=== PATIENT | male | born 1945 | race Caucasian/White ===

== ENCOUNTER 2017-11-14 13:44 | Inpatient (IN) | payer MEDICARE, OTHER ==
--- NOTE | 2017-11-14 15:37 | PCM.HP ---
H&P History of Present Illness - General Date of Service: 11/14/17 Admit Problem/Dx: Admission Diagnosis/Problem Admission Diagnosis/Problem Pneumonia COPD CHF ARF Source of Information: Patient, Longterm Records History Limitations: Reports: No Limitations - History of Present Illness Onset of Symptoms: Reports: Gradual Duration of Symptoms: Reports: Day(s): (getting worse last couple days) Location: Reports: Chest Improves with: Reports: Medication (neb treatments), Rest Worsens with: Reports: Movement Associated Symptoms: Reports: Cough, cough w sputum, Malaise, Shortness of Breath, Weakness - Related Data Allergies/Adverse Reactions: Allergies Allergy/AdvReac Type Severity Reaction Status Date / Time acyclovir Allergy Cannot Verified 11/14/17 15:36 Remember Past Medical History HEENT History: Reports: Cataract Other HEENT History: Dysphagia Cardiovascular History: Reports: Heart Failure, Hypertension Respiratory History: Reports: COPD, Sleep Apnea Gastrointestinal History: Reports: Chronic Constipation, GERD Genitourinary History: Reports: BPH, Renal Disease (chronic stage 3) Other Genitourinary History: Overactive Bladder Musculoskeletal History: Reports: Osteoarthritis Neurological History: Reports: Parkinson's Psychiatric History: Reports: Bipolar, Depression, Psychosis, Schizophrenia ( schizoaffective disorder) Endocrine/Metabolic History: Reports: Obesity/BMI 30+ Hematologic History: Reports: Anemia Social & Family History - Tobacco Use Tobacco Use Within Last Twelve Months: No - Living Situation & Occupation Living situation: Reports: Extended Care Facility ([facility]) H&P Review of Systems - Review of Systems: Review Of Systems: ROS reveals no pertinent complaints other than HPI. Exam - Exam Exam: See Below - Exam Quality Assessment: Supplemental Oxygen (continuous at 2-4 L/min per NC) General: Alert, Oriented, Mild Distress HEENT: Hearing Intact, Mucosa Moist & [place] Neck: Supple, Trachea Midline Lungs: Decreased Breath Sounds, Crackles, Rhonchi Cardiovascular: Regular Rate, Regular Rhythm GI/Abdominal Exam: Normal Bowel Sounds, Soft, Non-Tender (Male) Exam: Deferred Rectal (Males) Exam: Deferred Back Exam: Normal Inspection Extremities: Pedal Edema (chronic) Skin: Warm, Dry, Intact Neuro Extensive - Mental Status: Alert, Oriented x3 Psychiatric: Alert, Other (quieter than usual jovial self) *Q Meaningful Use (ADM) - VTE *Q VTE Criteria *Q: - Stroke *Q Stroke Criteria *Q: - AMI *Q AMI Criteria *Q: - Problem List (1) Pneumonia SNOMED Code(s): 407154458 ICD Code: J18.9 - PNEUMONIA, UNSPECIFIED ORGANISM Status: Acute Priority : High Current Visit: Yes Qualifiers: Pneumonia type: due to unspecified organism Laterality: left Lung location: lower lobe of lung Qualified Code(s): J18.1 - Lobar pneumonia, unspecified organism (2) COPD (chronic obstructive pulmonary disease) SNOMED Code(s): 51372152 ICD Code: J44.9 - CHRONIC OBSTRUCTIVE PULMONARY DISEASE, UNSPECIFIED Status : Acute Priority: High Current Visit: Yes Qualifiers: COPD type: COPD with acute exacerbation Qualified Code(s): J44.1 - Chronic obstructive pulmonary disease with (acute) exacerbation (3) CHF (congestive heart failure) SNOMED Code(s): 09024245 ICD Code: I50.9 - HEART FAILURE, UNSPECIFIED Status: Acute Priority: High Current Visit: Yes Qualifiers: Heart failure type: unspecified Heart failure chronicity: acute on chronic Qualified Code(s): I50.9 - Heart failure, unspecified (4) Renal failure (ARF), acute on chronic SNOMED Code(s): 138138323 ICD Code: N17.9 - ACUTE KIDNEY FAILURE, UNSPECIFIED; N18.9 - CHRONIC KIDNEY DISEASE, UNSPECIFIED Status: Acute Priority: High Current Visit: Yes Qualifiers: Acute renal failure type: unspecified Chronic kidney disease stage: stage 3 (moderate) Qualified Code(s): N17.9 - Acute kidney failure, unspecified; N18.3 - Chronic kidney disease, stage 3 (moderate); N18.3 - Chronic kidney disease, stage 3 (moderate) Problem List Initiated/Reviewed/Updated: Yes Orders Last 24hrs: Active Orders 24 hr Category Date Time Status Patient Status [ADT] Routine ADT 11/14/17 15:03 Active Antiembolic Devices [RC] PER UNIT ROUTINE Care 11/14/17 15:06 Active Height and Weight [RC] DAILY Care 11/14/17 15:03 Active Intake and Output [RC] QSHIFT Care 11/14/17 15:04 Active Oxygen Therapy Adult [Oxygen Therapy] [RC] CONTINUOUS Care 11/14/17 15:08 Active Oxygen Therapy [RC] PRN Care 11/14/17 15:03 Inactive Up With Assistance [RC] ASDIRECTED Care 11/14/17 15:03 Active VTE/DVT Education [RC] PER UNIT ROUTINE Care 11/14/17 15:03 Active Vital Signs [RC] Q4H Care 11/14/17 15:03 Active Care Management Consult [Consult to Case Management] [ Cons 11/14/17 15:12 Active CONS] Routine Pharmacy Consult [Consult to Pharmacy] [CONS] Routine Cons 11/14/17 15:11 Active Regular Diet [DIET] Diet 11/14/17 Dinner Active Chest 2V [CR] Routine Exams 11/14/17 14:00 Taken C-REACTIVE PROTEIN [CHEM] AM Lab 11/15/17 05:11 Ordered C-REACTIVE PROTEIN [CHEM] AM Lab 11/16/17 05:11 Ordered C-REACTIVE PROTEIN [CHEM] AM Lab 11/17/17 05:11 Ordered CBC WITH AUTO DIFF [HEME] AM Lab 11/15/17 05:11 Ordered CBC WITH AUTO DIFF [HEME] AM Lab 11/16/17 05:11 Ordered CBC WITH AUTO DIFF [HEME] AM Lab 11/17/17 05:11 Ordered COMPREHENSIVE METABOLIC PN,CMP [CHEM] AM Lab 11/15/17 05:11 Ordered COMPREHENSIVE METABOLIC PN,CMP [CHEM] AM Lab 11/16/17 05:11 Ordered COMPREHENSIVE METABOLIC PN,CMP [CHEM] AM Lab 11/17/17 05:11 Ordered CULTURE BLOOD [BC] Stat Lab 11/14/17 15:07 Ordered CULTURE BLOOD [BC] Stat Lab 11/14/17 15:07 Ordered PRO B-TYPE NATRIUR PEPT,BNPPRO [CHEM] DAILY Lab 11/15/17 05:11 Ordered PRO B-TYPE NATRIUR PEPT,BNPPRO [CHEM] DAILY Lab 11/16/17 05:11 Ordered PRO B-TYPE NATRIUR PEPT,BNPPRO [CHEM] DAILY Lab 11/17/17 05:11 Ordered Piperacillin/Tazobactam [Zosyn] 2.25 gm Med 11/14/17 15:15 Ordered Sodium Chloride 0.9% [Normal Saline] 100 ml IV Q6H Sodium Chloride 0.9% [Saline Flush] Med 11/14/17 15:07 Ordered 10 ml FLUSH ASDIRECTED PRN metroNIDAZOLE/Normal Saline [Flagyl 500 MG in NS 100 ML Med 11/14/17 15:15 Ordered ] 500 mg Premix Bag 1 bag IV Q8H Antiembolic Hose [OM.PC] Per Unit Routine Oth 11/14/17 15:06 Ordered Blood Culture x2 Reflex Set [OM.PC] Stat Oth 11/14/17 15:07 Ordered Saline Lock Insert [OM.PC] Routine Oth 11/14/17 15:07 Ordered Resuscitation Status Routine Resus Stat 11/14/17 15:03 Ordered Medication Orders Metronidazole 500 mg/ Premix 100 mls @ 100 mls/hr IV Q8H NASIR Piperacillin Sod/Tazobactam (Sod 2.25 gm/ Sodium Chloride) 100 mls @ 200 mls/ hr IV Q6H NASIR Sodium Chloride (Saline Flush) 10 ml FLUSH ASDIRECTED PRN PRN Reason: Keep Vein Open Assessment/Plan Comment:: 11-14-17 Elena Goddard PA-C Admitting this gentleman from the Skilled Unit of the [facility], after evaluation at the clinic. He appears in at least mild distress, and workup finds pneumonia, COPD exacerbation and decompensation of CHF. His renal status has worsened and will need to be considered when treating these other comorbidities. [facility] had no bed available, but our cattle care worker can check with her on status of beds tomorrow. Blood cultures ordered on admit. Starting IV Flagyl and Zosyn. Dr. Moran consulted at the time of admit.
[2017-11-14] MEDS ORDERED: Albuterol/Ipratropium 3.0-0.5 MG/3 ML Neb Soln NEB PRN ×2 (16:31→17:22)
[2017-11-14] MEDS: Piperacillin/Tazobactam 2.25 GM in Sodium Chloride 0.9% 100 ML IV SCH ×2 (16:45→21:22)
[2017-11-14] MEDS: Sodium Chloride 0.9% 10 ML Syringe FLUSH PRN ×4 (16:46→21:23)
[2017-11-14] MEDS: metroNIDAZOLE/Normal Saline 500 MG in Premix Bag 1 BAG IV SCH (16:46)
[2017-11-14] MEDS ORDERED: Polyvinyl Alcohol 1.4% Ophth Soln 15 ML Bottle EYEBOTH PRN (17:22)
[2017-11-14] MEDS ORDERED: Bisacodyl 10 MG Supp RECTAL PRN (17:22)
[2017-11-14] MEDS ORDERED: Loperamide 2 MG Tab PO PRN (17:22)
[2017-11-14] MEDS ORDERED: Docusate Sodium 100 MG Cap PO PRN (17:22)
[2017-11-14] MEDS ORDERED: Bisacodyl 5 MG Tab PO PRN (17:22)
[2017-11-14] MEDS ORDERED: Acetaminophen 325 MG Tab PO PRN (17:22)
[2017-11-14] MEDS ORDERED: Magnesium Hydroxide 400 MG/5 ML Susp 30 ML Cup PO PRN (17:22)
[2017-11-14] MEDS ORDERED: Nitroglycerin 0.4 MG Tab.SL SL PRN (17:22)
[2017-11-14] MEDS ORDERED: guaiFENesin/Dextromethorphan 100-10 MG/5 ML Soln 10 ML Cup PO PRN (17:22)
[2017-11-14] MEDS: CLOZAPINE 100 MG PO SCH (19:25)
[2017-11-14] MEDS: guanFACINE 1 MG Tab PO SCH (19:26)
[2017-11-14] MEDS: Tamsulosin 0.4 MG Cap.ER PO SCH (19:26)
[2017-11-14] MEDS: Primidone 50 MG Tab PO SCH (19:27)
[2017-11-14] MEDS: Omeprazole 20 MG Cap.CR PO SCH (19:27)
[2017-11-14] MEDS: Acetaminophen 650 MG Tab.ER PO SCH (19:28)
[2017-11-14] MEDS: Albuterol/Ipratropium 3.0-0.5 MG/3 ML Neb Soln NEB SCH (19:28)
[2017-11-14] MEDS: methylPREDNISolone Sodium Succinate 40 MG/1 ML SDV IVPUSH SCH (19:29)
[2017-11-14] MEDS ORDERED: Albuterol/Ipratropium 3.0-0.5 MG/3 ML Neb Soln NEB SCH (20:00)
[2017-11-15] MEDS: metroNIDAZOLE/Normal Saline 500 MG in Premix Bag 1 BAG IV SCH ×3 (00:38→16:31)
[2017-11-15] MEDS: Sodium Chloride 0.9% 10 ML Syringe FLUSH PRN ×9 (00:39→22:13)
[2017-11-15] MEDS: Piperacillin/Tazobactam 2.25 GM in Sodium Chloride 0.9% 100 ML IV SCH ×4 (03:44→22:13)
[2017-11-15] MEDS: Albuterol/Ipratropium 3.0-0.5 MG/3 ML Neb Soln NEB SCH ×4 (08:19→19:57)
[2017-11-15] MEDS: methylPREDNISolone Sodium Succinate 40 MG/1 ML SDV IVPUSH SCH ×2 (08:19→19:57)
[2017-11-15] MEDS: Furosemide 20 MG/2 ML VIAL IVPUSH SCH (08:20)
[2017-11-15] MEDS: Lactulose Soln 10 GM/15 ML 30 ML UD Cup PO SCH (11:50)
[2017-11-15] MEDS: lamoTRIgine 100 MG Tab PO SCH (11:51)
[2017-11-15] MEDS: Cyanocobalamin (Vitamin B12) 250 MCG Tab PO SCH (11:52)
[2017-11-15] MEDS: Oxybutynin 5 MG Tab.ER PO SCH (11:53)
[2017-11-15] MEDS: Acetaminophen 650 MG Tab.ER PO SCH ×2 (11:53→19:58)
[2017-11-15] MEDS: Omeprazole 20 MG Cap.CR PO SCH ×2 (11:56→19:57)
[2017-11-15] MEDS: Sertraline 50 MG Tab PO SCH (11:57)
[2017-11-15] MEDS: Propranolol 80 MG Cap.ER PO SCH (11:57)
[2017-11-15] MEDS: Finasteride 5 MG Tab PO SCH (11:57)
[2017-11-15] MEDS: CLOZAPINE 100 MG PO SCH ×2 (15:20→19:59)
[2017-11-15] MEDS: Primidone 50 MG Tab PO SCH (19:57)
[2017-11-15] MEDS: Tamsulosin 0.4 MG Cap.ER PO SCH (19:57)
[2017-11-15] MEDS: guanFACINE 1 MG Tab PO SCH (19:58)
--- NOTE | 2017-11-15 21:52 | PCM.PN ---
- General Info Date of Service: 11/15/17 Admission Dx/Problem (Free Text): Admission Diagnosis/Problem Admission Diagnosis/Problem Pneumonia COPD CHF ARF Functional Status: Reports: Pain Controlled - Review of Systems General: Reports: Weakness HEENT: Reports: No Symptoms Pulmonary: Reports: Shortness of Breath, Cough Cardiovascular: Reports: No Symptoms Gastrointestinal: Reports: No Symptoms Genitourinary: Reports: Incontinence Musculoskeletal: Reports: No Symptoms Skin: Reports: Bruising, Other (difficult IV access) Neurological: Reports: Pre-Existing Deficit Psychiatric: Reports: No Symptoms - Patient Data Vitals - Most Recent: Last Vital Signs Temp 98.2 F 11/15/17 20:00 Pulse 70 11/15/17 20:00 Resp 16 11/15/17 20:00 BP 130/66 11/15/17 20:00 Pulse Ox 93 L 11/15/17 20:00 Weight - Most Recent: 244 lb I&O - Last 24 Hours: Intake & Output 11/15/17 11/15/17 11/15/17 06:59 14:59 22:59 Intake Total 837 292 9490 Output Total 500 Balance 513 39 2833 Lab Results Last 24 Hours: Laboratory Results - last 24 hr 11/15/17 11/15/17 Range/Units 07:02 07:02 WBC 6.9 (4.0-10.2) K/uL RBC 2.86 L (4.33-5.41) M/uL Hgb 9.7 L (13.1-16.8) g/dL Hct 29.7 L (39.0-49.0) % MCV 103.8 H (84.0-98.0) fL MCH 33.9 H (28.2-33.3) pg MCHC 32.7 (31.7-36.0) g/dL RDW 14.0 (11.2-14.1) % Plt Count 127 L (150-350) K/uL Neut % (Auto) 88.3 H (45.0-80.0) % Lymph % (Auto) 8.4 L (10.0-50.0) % Gibson % (Auto) 2.9 (2.0-14.0) % Eos % (Auto) 0.1 (0.0-5.0) % Baso % (Auto) 0.3 (0.0-2.0) % Neut # (Auto) 6.10 (1.40-7.00) K/uL Lymph # (Auto) 0.58 (0.50-3.50) K/uL Gibson # (Auto) 0.20 (0.00-1.00) K/uL Eos # (Auto) 0.01 (0.00-0.50) K/uL Baso # (Auto) 0.02 (0.00-0.20) K/uL Sodium 142 (136-145) mmol/L Potassium 4.9 (3.5-5.1) mmol/L Chloride 106 (98-107) mmol/L Carbon Dioxide 28.1 (21.0-32.0) mmol/L BUN 41 H (7-18) mg/dL Creatinine 2.22 H (0.51-1.17) mg/dL Est Cr Clr Drug Dosing 30.60 mL/min Estimated GFR (MDRD) 29 mL/min Glucose 253 H* (74-106) mg/dL Calcium 9.7 (8.5-10.1) mg/dL Total Bilirubin 0.3 (0.2-1.0) mg/dL AST 12 L (15-37) U/L ALT 19 (12-78) U/L Alkaline Phosphatase 83 (46-116) IU/L C-Reactive Protein 11.3 H (<=0.9) mg/dL NT-Pro-B Natriuret Pep 1194 H (0-125) pg/mL Total Protein 6.2 L (6.4-8.2) g/dL Albumin 2.9 L (3.4-5.0) g/dL Behzad Results Last 24 Hours: Microbiology 11/14/17 15:29 Aerobic Blood Culture - Preliminary Blood - Venous - Lab Draw Anaerobic Blood Culture - Preliminary NO GROWTH AFTER 1 DAY 11/14/17 15:26 Aerobic Blood Culture - Preliminary Blood - Venous NO GROWTH AFTER 1 DAY Anaerobic Blood Culture - Preliminary NO GROWTH AFTER 1 DAY Med Orders - Current: Current Medications Acetaminophen (Tylenol Arthritis Pain) 650 mg PO BID@1200,1900 NASIR Last Admin: 11/15/17 19:58 Dose: 650 mg Acetaminophen (Tylenol) 650 mg PO Q6H PRN PRN Reason: Pain Albuterol/Ipratropium (Duoneb 3.0-0.5 Mg/3 Ml) 3 ml NEB Q4H PRN PRN Reason: Shortness of Breath Albuterol/Ipratropium (Duoneb 3.0-0.5 Mg/3 Ml) 3 ml NEB QIDRT [facility] Last Admin: 11/15/17 19:57 Dose: 3 ml Artificial Tears (Liquitears 1.4% Ophth Soln) 0 ml EYEBOTH Q4H PRN PRN Reason: Dry Eyes Bisacodyl (Dulcolax) 10 mg RECTAL DAILY PRN PRN Reason: Constipation Bisacodyl (Dulcolax) 5 mg PO DAILY PRN PRN Reason: Constipation Cyanocobalamin (Vitamin B12) 250 mcg PO DAILY@1200 [facility] [place] Last Admin: 11/15/17 11:52 Dose: 250 mcg Docusate Sodium (Colace) 100 mg PO DAILY PRN PRN Reason: Constipation Finasteride (Proscar) 5 mg PO DAILY@1200 [facility] [place] Last Admin: 11/15/17 11:57 Dose: 5 mg Furosemide (Lasix) 20 mg IVPUSH DAILY [facility] [place] Last Admin: 11/15/17 08:20 Dose: 20 mg Guaifenesin/Dextromethorphan (Robitussin Dm) 10 ml PO Q4H PRN PRN Reason: Cough Guanfacine HCl (Guanfacine) 1 mg PO DAILY@1900 [facility] [place] Last Admin: 11/15/17 19:58 Dose: 1 mg Metronidazole 500 mg/ Premix 100 mls @ 100 mls/hr IV Q8H [facility] [place] Last Admin: 11/15/17 16:31 Dose: 100 mls/hr Piperacillin Sod/Tazobactam (Sod 2.25 gm/ Sodium Chloride) 100 mls @ 200 mls/ hr IV Q6H [facility] [place] Last Admin: 11/15/17 15:21 Dose: 200 mls/hr Lactulose (Cephulac) 10 gm PO DAILY@1200 [facility] [place] Last Admin: 11/15/17 11:50 Dose: 10 gm Lamotrigine (Lamotrigine) 150 mg PO DAILY@1200 [facility] [place] Last Admin: 11/15/17 11:51 Dose: 150 mg Loperamide HCl (Imodium Ad) 2 mg PO ASDIRECTED PRN PRN Reason: LOOSE STOOLS Magnesium Hydroxide (Milk Of Magnesia) 30 ml PO DAILY PRN PRN Reason: Constipation Methylprednisolone Sodium Succinate (Solu-Medrol) 20 mg IVPUSH Q12H [facility] [place] Last Admin: 11/15/17 19:57 Dose: 20 mg Nitroglycerin (Nitrostat) 0.4 mg SL ASDIRECTED PRN PRN Reason: Chest Pain Clozapine 100 Mg (Own Med) 0 mg PO BID@1200,1900 [facility] [place] Last Admin: 11/15/17 19:59 Dose: 150 mg Omeprazole (Omeprazole) 20 mg PO BID@1200,1900 [facility] [place] Last Admin: 11/15/17 19:57 Dose: 20 mg Oxybutynin Chloride (Oxybutynin Er) 10 mg PO DAILY@1200 [facility] [place] Last Admin: 11/15/17 11:53 Dose: 10 mg Primidone (Mysoline) 50 mg PO DAILY@1900 [facility] [place] Last Admin: 11/15/17 19:57 Dose: 50 mg Propranolol HCl (Inderal La) 80 mg PO DAILY@1200 [facility] [place] Last Admin: 11/15/17 11:57 Dose: 80 mg Senna/Docusate Sodium (Senna Plus) 2 tab PO BID@1200,1900 [facility] [place] Last Admin: 11/15/17 19:57 Dose: 2 tab Sertraline HCl (Zoloft) 200 mg PO DAILY@1200 [facility] [place] Last Admin: 11/15/17 11:57 Dose: 200 mg Sodium Chloride (Saline Flush) 10 ml FLUSH ASDIRECTED PRN PRN Reason: Keep Vein Open Last Admin: 11/15/17 19:59 Dose: 10 ml Tamsulosin HCl (Flomax) 0.4 mg PO DAILY@1900 [facility] [place] Last Admin: 11/15/17 19:57 Dose: 0.4 mg Discontinued Medications Albuterol/Ipratropium (Duoneb 3.0-0.5 Mg/3 Ml) 3 ml NEB Q4HRRT PRN PRN Reason: Dyspnea Last Admin: 11/14/17 16:45 Dose: 3 ml Albuterol/Ipratropium (Duoneb 3.0-0.5 Mg/3 Ml) 3 ml NEB QIDRT [facility] [place] Piperacillin Sod/Tazobactam Sod (Zosyn) Confirm Administered Dose 2.25 gm .ROUTE .STK-MED ONE Stop: 11/14/17 16:04 Last Admin: 11/14/17 16:43 Dose: Not Given - Exam Quality Assessment: Supplemental Oxygen, Skin Breakdown (great toe) HEENT: Mucous Membr. Moist/[place] Neck: Trachea Midline, No JVD Lungs: Normal Respiratory Effort, Decreased Breath Sounds, Rhonchi Cardiovascular: Regular Rate, Regular Rhythm GI/Abdominal Exam: Soft, Non-Tender, No Distention (Male) Exam: Deferred Back Exam: Normal Inspection Extremities: Pedal Edema, Slow Capillary Refill Skin: Warm, Dry, Ecchymosis Wound/Incisions: Other (great toe) Neurological: No New Focal Deficit Psy/Mental Status: Alert, Normal Affect, Normal Mood - Problem List & Annotations (1) CHF (congestive heart failure) SNOMED Code(s): 02260821 Code(s): I50.9 - HEART FAILURE, UNSPECIFIED Status: Acute Priority: High Current Visit: Yes Qualifiers: Heart failure type: unspecified Heart failure chronicity: acute on chronic Qualified Code(s): I50.9 - Heart failure, unspecified (2) COPD (chronic obstructive pulmonary disease) SNOMED Code(s): 65166385 Code(s): J44.9 - CHRONIC OBSTRUCTIVE PULMONARY DISEASE, UNSPECIFIED Status : Acute Priority: High Current Visit: Yes Qualifiers: COPD type: COPD with acute exacerbation Qualified Code(s): J44.1 - Chronic obstructive pulmonary disease with (acute) exacerbation (3) Pneumonia SNOMED Code(s): 004319729 Code(s): J18.9 - PNEUMONIA, UNSPECIFIED ORGANISM Status: Acute Priority: High Current Visit: Yes Qualifiers: Pneumonia type: due to unspecified organism Laterality: left Lung location: lower lobe of lung Qualified Code(s): J18.1 - Lobar pneumonia, unspecified organism (4) Renal failure (ARF), acute on chronic SNOMED Code(s): 813033644 Code(s): N17.9 - ACUTE KIDNEY FAILURE, UNSPECIFIED; N18.9 - CHRONIC KIDNEY DISEASE, UNSPECIFIED Status: Acute Priority: High Current Visit: Yes Qualifiers: Acute renal failure type: unspecified Chronic kidney disease stage: stage 3 (moderate) Qualified Code(s): N17.9 - Acute kidney failure, unspecified; N18.3 - Chronic kidney disease, stage 3 (moderate); N18.3 - Chronic kidney disease, stage 3 (moderate) - Problem List Review Problem List Initiated/Reviewed/Updated: Yes - My Orders Last 24 Hours: My Active Orders 11/16/17 05:11 Consult to PICC Team [CONS] Routine BLOOD GAS VENOUS [BG] Routine PHOSPHORUS [CHEM] Routine URIC ACID [CHEM] Routine 11/16/17 08:00 Consult to Speech Language Pathology [MD PEDIATRIC ALLERGIST Evaluation and Treatment] [CONS] Routine 11/16/17 10:00 Swallowing Function w Video [CR] Routine - Plan Plan:: 11-14-17 Elena Goddard PA-C Admitting this gentleman from the Skilled Unit of the [facility], after evaluation at the clinic. He appears in at least mild distress, and workup finds pneumonia, COPD exacerbation and decompensation of CHF. His renal status has worsened and will need to be considered when treating these other comorbidities. [facility] had no bed available, but our career coordinator can check with her on status of beds tomorrow. Blood cultures ordered on admit. Starting IV Flagyl and Zosyn. Dr. Moran consulted at the time of admit. 11/15/17 Dean Dai MD A little bit better today. Blood cultures preliminary +. Difficult IV access. Will order PICC. Continue IV antibiotics. Kidney status no improvement.
[2017-11-16] MEDS: metroNIDAZOLE/Normal Saline 500 MG in Premix Bag 1 BAG IV SCH ×3 (00:03→17:37)
[2017-11-16] MEDS: Sodium Chloride 0.9% 10 ML Syringe FLUSH PRN ×9 (00:07→21:32)
[2017-11-16] MEDS: Piperacillin/Tazobactam 2.25 GM in Sodium Chloride 0.9% 100 ML IV SCH ×4 (03:19→21:31)
[2017-11-16] MEDS: Albuterol/Ipratropium 3.0-0.5 MG/3 ML Neb Soln NEB SCH ×4 (07:22→19:39)
[2017-11-16 08:12] LABS: BASE EXCESS VENOUS 5 mmol/L ((-2)-3); BICARBONATE,VENOUS 30 mmol/L (23-28); O2 SATURATION VENOUS 100 %; PCO2 VENOUS 47 mmHG (41-51); PH,VENOUS 7.41 (7.31-7.41); PO2 VENOUS 183 mmHG
[2017-11-16 08:13] LABS: O2 DELIVERY DEVICE NASAL CANNULA
[2017-11-16] MEDS: Furosemide 20 MG/2 ML VIAL IVPUSH SCH (08:35)
[2017-11-16] MEDS: methylPREDNISolone Sodium Succinate 40 MG/1 ML SDV IVPUSH SCH ×2 (08:35→19:39)
[2017-11-16] MEDS: Lactulose Soln 10 GM/15 ML 30 ML UD Cup PO SCH (12:39)
[2017-11-16] MEDS: CLOZAPINE 100 MG PO SCH ×2 (12:40→19:38)
[2017-11-16] MEDS: Propranolol 80 MG Cap.ER PO SCH (12:41)
[2017-11-16] MEDS: Oxybutynin 5 MG Tab.ER PO SCH (12:41)
[2017-11-16] MEDS: Acetaminophen 650 MG Tab.ER PO SCH ×2 (12:41→19:39)
[2017-11-16] MEDS: Finasteride 5 MG Tab PO SCH (12:41)
[2017-11-16] MEDS: lamoTRIgine 100 MG Tab PO SCH (12:42)
[2017-11-16] MEDS: Cyanocobalamin (Vitamin B12) 250 MCG Tab PO SCH (12:42)
[2017-11-16] MEDS: Sertraline 50 MG Tab PO SCH (12:42)
[2017-11-16] MEDS: Omeprazole 20 MG Cap.CR PO SCH ×2 (12:42→19:38)
--- NOTE | 2017-11-16 15:43 | PCM.PN ---
- General Info Date of Service: 11/16/17 Admission Dx/Problem (Free Text): Admission Diagnosis/Problem Admission Diagnosis/Problem Pneumonia COPD CHF ARF Functional Status: Reports: Pain Controlled - Review of Systems General: Reports: Weakness HEENT: Reports: No Symptoms Pulmonary: Reports: Shortness of Breath, Cough Cardiovascular: Reports: No Symptoms Gastrointestinal: Reports: No Symptoms Genitourinary: Reports: No Symptoms Musculoskeletal: Reports: No Symptoms Skin: Reports: No Symptoms Neurological: Reports: Pre-Existing Deficit, Weakness Psychiatric: Reports: No Symptoms, Mood Lability (History) - Patient Data Vitals - Most Recent: Last Vital Signs Temp 97.9 F 11/16/17 12:00 Pulse 65 11/16/17 12:00 Resp 18 11/16/17 12:00 BP 167/78 H 11/16/17 12:00 Pulse Ox 94 L 11/16/17 12:00 Weight - Most Recent: 244 lb I&O - Last 24 Hours: Intake & Output 11/16/17 11/16/17 11/16/17 06:59 14:59 22:59 Intake Total 200 840 Output Total 50 400 Balance 150 440 Lab Results Last 24 Hours: Laboratory Results - last 24 hr 11/16/17 11/16/17 11/16/17 Range/Units 06:50 06:50 06:50 WBC 9.2 (4.0-10.2) K/uL RBC 2.97 L (4.33-5.41) M/uL Hgb 10.0 L (13.1-16.8) g/dL Hct 31.0 L (39.0-49.0) % MCV 104.4 H (84.0-98.0) fL MCH 33.7 H (28.2-33.3) pg MCHC 32.3 (31.7-36.0) g/dL RDW 13.9 (11.2-14.1) % Plt Count 153 (150-350) K/uL Neut % (Auto) 87.0 H (45.0-80.0) % Lymph % (Auto) 8.3 L (10.0-50.0) % [place] % (Auto) 4.4 (2.0-14.0) % Eos % (Auto) 0.1 (0.0-5.0) % Baso % (Auto) 0.2 (0.0-2.0) % Neut # (Auto) 7.99 H (1.40-7.00) K/uL Lymph # (Auto) 0.76 (0.50-3.50) K/uL [place] # (Auto) 0.40 (0.00-1.00) K/uL Eos # (Auto) 0.01 (0.00-0.50) K/uL Baso # (Auto) 0.02 (0.00-0.20) K/uL VBG pH 7.41 (7.31-7.41) VBG pCO2 47 (41-51) mmHG VBG pO2 183 mmHG VBG HCO3 30 H (23-28) mmol/L VBG Total CO2 31 mmol/L VBG O2 Saturation 100 % VBG Base Excess 5 H ((-2)-3) mmol/L O2 Delivery Device Nasal cannula Sodium 145 (136-145) mmol/L Potassium 4.6 (3.5-5.1) mmol/L Chloride 108 H (98-107) mmol/L Carbon Dioxide 28.6 (21.0-32.0) mmol/L BUN 39 H (7-18) mg/dL Creatinine 2.15 H (0.51-1.17) mg/dL Est Cr Clr Drug Dosing 31.60 mL/min Estimated GFR (MDRD) 30 mL/min Glucose 225 H (74-106) mg/dL Uric Acid 8.7 H (2.6-7.2) mg/dL Calcium 9.9 (8.5-10.1) mg/dL Phosphorus 3.6 (2.6-4.7) mg/dL Total Bilirubin 0.3 (0.2-1.0) mg/dL AST 11 L (15-37) U/L ALT 19 (12-78) U/L Alkaline Phosphatase 78 (46-116) IU/L C-Reactive Protein 6.1 H (<=0.9) mg/dL NT-Pro-B Natriuret Pep 2256 H (0-125) pg/mL Total Protein 6.3 L (6.4-8.2) g/dL Albumin 2.9 L (3.4-5.0) g/dL Behzad Results Last 24 Hours: Microbiology 11/14/17 15:29 Aerobic Blood Culture - Preliminary Blood - Venous - Lab Draw Anaerobic Blood Culture - Preliminary NO GROWTH AFTER 1 DAY 11/14/17 15:26 Aerobic Blood Culture - Preliminary Blood - Venous NO GROWTH AFTER 1 DAY Anaerobic Blood Culture - Preliminary NO GROWTH AFTER 1 DAY Med Orders - Current: Current Medications Acetaminophen (Tylenol Arthritis Pain) 650 mg PO BID@1200,1900 [facility] Last Admin: 11/16/17 12:41 Dose: 650 mg Acetaminophen (Tylenol) 650 mg PO Q6H PRN PRN Reason: Pain Albuterol/Ipratropium (Duoneb 3.0-0.5 Mg/3 Ml) 3 ml NEB Q4H PRN PRN Reason: Shortness of Breath Albuterol/Ipratropium (Duoneb 3.0-0.5 Mg/3 Ml) 3 ml NEB QIDRT [facility] Last Admin: 11/16/17 12:41 Dose: 3 ml Artificial Tears (Liquitears 1.4% Ophth Soln) 0 ml EYEBOTH Q4H PRN PRN Reason: Dry Eyes Bisacodyl (Dulcolax) 10 mg RECTAL DAILY PRN PRN Reason: Constipation Bisacodyl (Dulcolax) 5 mg PO DAILY PRN PRN Reason: Constipation Cyanocobalamin (Vitamin B12) 250 mcg PO DAILY@1200 [facility] Last Admin: 11/16/17 12:42 Dose: 250 mcg Docusate Sodium (Colace) 100 mg PO DAILY PRN PRN Reason: Constipation Finasteride (Proscar) 5 mg PO DAILY@1200 [facility] Last Admin: 11/16/17 12:41 Dose: 5 mg Furosemide (Lasix) 20 mg IVPUSH DAILY [facility] Last Admin: 11/16/17 08:35 Dose: 20 mg Guaifenesin/Dextromethorphan (Robitussin Dm) 10 ml PO Q4H PRN PRN Reason: Cough Guanfacine HCl (Guanfacine) 1 mg PO DAILY@1900 [facility] Last Admin: 11/15/17 19:58 Dose: 1 mg Metronidazole 500 mg/ Premix 100 mls @ 100 mls/hr IV Q8H [facility] Last Admin: 11/16/17 08:36 Dose: 100 mls/hr Piperacillin Sod/Tazobactam (Sod 2.25 gm/ Sodium Chloride) 100 mls @ 200 mls/ hr IV Q6H [facility] Last Admin: 11/16/17 09:47 Dose: 200 mls/hr Lactulose (Cephulac) 10 gm PO DAILY@1200 [facility] Last Admin: 11/16/17 12:39 Dose: 10 gm Lamotrigine (Lamotrigine) 150 mg PO DAILY@1200 [facility] Last Admin: 11/16/17 12:42 Dose: 150 mg Loperamide HCl (Imodium Ad) 2 mg PO ASDIRECTED PRN PRN Reason: LOOSE STOOLS Magnesium Hydroxide (Milk Of Magnesia) 30 ml PO DAILY PRN PRN Reason: Constipation Methylprednisolone Sodium Succinate (Solu-Medrol) 20 mg IVPUSH Q12H [facility] Last Admin: 11/16/17 08:35 Dose: 20 mg Nitroglycerin (Nitrostat) 0.4 mg SL ASDIRECTED PRN PRN Reason: Chest Pain Clozapine 100 Mg (Own Med) 0 mg PO BID@1200,1900 [facility] Last Admin: 11/16/17 12:40 Dose: 150 mg Omeprazole (Omeprazole) 20 mg PO BID@1200,1900 [facility] Last Admin: 11/16/17 12:42 Dose: 20 mg Oxybutynin Chloride (Oxybutynin Er) 10 mg PO DAILY@1200 [facility] Last Admin: 11/16/17 12:41 Dose: 10 mg Primidone (Mysoline) 50 mg PO DAILY@1900 [facility] Last Admin: 11/15/17 19:57 Dose: 50 mg Propranolol HCl (Inderal La) 80 mg PO DAILY@1200 [facility] Last Admin: 11/16/17 12:41 Dose: 80 mg Senna/Docusate Sodium (Senna Plus) 2 tab PO BID@1200,1900 [facility] Last Admin: 11/16/17 12:41 Dose: 2 tab Sertraline HCl (Zoloft) 200 mg PO DAILY@1200 [facility] Last Admin: 11/16/17 12:42 Dose: 200 mg Sodium Chloride (Saline Flush) 10 ml FLUSH ASDIRECTED PRN PRN Reason: Keep Vein Open Last Admin: 11/16/17 09:47 Dose: 10 ml Tamsulosin HCl (Flomax) 0.4 mg PO DAILY@1900 [facility] Last Admin: 11/15/17 19:57 Dose: 0.4 mg Discontinued Medications Albuterol/Ipratropium (Duoneb 3.0-0.5 Mg/3 Ml) 3 ml NEB Q4HRRT PRN PRN Reason: Dyspnea Last Admin: 11/14/17 16:45 Dose: 3 ml Albuterol/Ipratropium (Duoneb 3.0-0.5 Mg/3 Ml) 3 ml NEB QIDRT [facility] Piperacillin Sod/Tazobactam Sod (Zosyn) Confirm Administered Dose 2.25 gm .ROUTE .STK-MED ONE Stop: 11/14/17 16:04 Last Admin: 11/14/17 16:43 Dose: Not Given - Exam Quality Assessment: Supplemental Oxygen General: Alert, Cooperative HEENT: Mucous Membr. Moist/[place] Neck: Trachea Midline, No JVD Lungs: Decreased Breath Sounds, Wheezing (audible) Cardiovascular: Irregular Rhythm GI/Abdominal Exam: Soft, Non-Tender (Male) Exam: Deferred Back Exam: Normal Inspection Extremities: Non-Tender, Pedal Edema Skin: Warm, Dry, Intact, Ecchymosis Wound/Incisions: Other (great toe) Neurological: No New Focal Deficit Psy/Mental Status: Alert, Normal Affect, Normal Mood - Problem List & Annotations (1) CHF (congestive heart failure) SNOMED Code(s): 54863548 Code(s): I50.9 - HEART FAILURE, UNSPECIFIED Status: Acute Priority: High Current Visit: Yes Qualifiers: Heart failure type: unspecified Heart failure chronicity: acute on chronic Qualified Code(s): I50.9 - Heart failure, unspecified (2) COPD (chronic obstructive pulmonary disease) SNOMED Code(s): 23302753 Code(s): J44.9 - CHRONIC OBSTRUCTIVE PULMONARY DISEASE, UNSPECIFIED Status : Acute Priority: High Current Visit: Yes Qualifiers: COPD type: COPD with acute exacerbation Qualified Code(s): J44.1 - Chronic obstructive pulmonary disease with (acute) exacerbation (3) Pneumonia SNOMED Code(s): 843624583 Code(s): J18.9 - PNEUMONIA, UNSPECIFIED ORGANISM Status: Acute Priority: High Current Visit: Yes Qualifiers: Pneumonia type: due to unspecified organism Laterality: left Lung location: lower lobe of lung Qualified Code(s): J18.1 - Lobar pneumonia, unspecified organism (4) Renal failure (ARF), acute on chronic SNOMED Code(s): 630800477 Code(s): N17.9 - ACUTE KIDNEY FAILURE, UNSPECIFIED; N18.9 - CHRONIC KIDNEY DISEASE, UNSPECIFIED Status: Acute Priority: High Current Visit: Yes Qualifiers: Acute renal failure type: unspecified Chronic kidney disease stage: stage 3 (moderate) Qualified Code(s): N17.9 - Acute kidney failure, unspecified; N18.3 - Chronic kidney disease, stage 3 (moderate); N18.3 - Chronic kidney disease, stage 3 (moderate) - Problem List Review Problem List Initiated/Reviewed/Updated: Yes - My Orders Last 24 Hours: My Active Orders 11/16/17 05:11 Consult to PICC Team [CONS] Routine 11/16/17 08:00 Consult to Speech Language Pathology [[employer] INVESTIGATOR Evaluation and Treatment] [CONS] Routine 11/16/17 14:41 Central Line Assessment [RC] Q12H Central Line Insert Checklist [RC] ASDIRECTED OR PCXR-No Charge-PICC/Central [CR] Routine Central Venous Line Insertion [OM.PC] Routine - Plan Plan:: 11-14-17 Elena Goddard PA-C [facility] after evaluation at the clinic. He appears in at least mild distress, and workup finds pneumonia, COPD exacerbation and decompensation of CHF. His renal status has worsened and will need to be considered when treating these other comorbidities. [facility] had no bed available, but our intensive care unit registered nurse can check with her on status of beds tomorrow. Blood cultures ordered on admit. Starting IV Flagyl and Zosyn. Dr. Moran consulted at the time of admit. 11/15/17 Dean Dai MD A little bit better today. Blood cultures preliminary +. Difficult IV access. Will order PICC. Continue IV antibiotics. Kidney status no improvement. 11/16/17 Dean Dai MD Very slow progress. Bed available at [facility] today but he wants to stay in [place]. Unable to do video swallow. Needs PICC. Still awaiting blood culture results. Continue IV antibiotics.
[2017-11-16] MEDS: Primidone 50 MG Tab PO SCH (19:38)
[2017-11-16] MEDS: Tamsulosin 0.4 MG Cap.ER PO SCH (19:39)
[2017-11-16] MEDS: guanFACINE 1 MG Tab PO SCH (19:39)
[2017-11-17] MEDS: metroNIDAZOLE/Normal Saline 500 MG in Premix Bag 1 BAG IV SCH ×3 (00:19→18:05)
[2017-11-17] MEDS: Sodium Chloride 0.9% 10 ML Syringe FLUSH PRN ×5 (00:19→16:37)
[2017-11-17] MEDS: Piperacillin/Tazobactam 2.25 GM in Sodium Chloride 0.9% 100 ML IV SCH ×3 (04:00→16:37)
[2017-11-17] MEDS: Albuterol/Ipratropium 3.0-0.5 MG/3 ML Neb Soln NEB SCH ×4 (08:39→20:57)
[2017-11-17] MEDS: methylPREDNISolone Sodium Succinate 40 MG/1 ML SDV IVPUSH SCH ×2 (08:39→20:57)
[2017-11-17] MEDS: Furosemide 20 MG/2 ML VIAL IVPUSH SCH (08:39)
[2017-11-17] MEDS: Oxybutynin 5 MG Tab.ER PO SCH (11:50)
[2017-11-17] MEDS: Omeprazole 20 MG Cap.CR PO SCH ×2 (11:50→20:56)
[2017-11-17] MEDS: Finasteride 5 MG Tab PO SCH (11:50)
[2017-11-17] MEDS: Cyanocobalamin (Vitamin B12) 250 MCG Tab PO SCH (11:50)
[2017-11-17] MEDS: Acetaminophen 650 MG Tab.ER PO SCH ×2 (11:50→20:56)
[2017-11-17] MEDS: lamoTRIgine 100 MG Tab PO SCH (11:50)
[2017-11-17] MEDS: Sertraline 50 MG Tab PO SCH (11:50)
[2017-11-17] MEDS: CLOZAPINE 100 MG PO SCH ×2 (11:51→20:58)
[2017-11-17] MEDS: Lactulose Soln 10 GM/15 ML 30 ML UD Cup PO SCH (11:51)
[2017-11-17] MEDS: Propranolol 80 MG Cap.ER PO SCH (11:51)
--- NOTE | 2017-11-17 17:27 | PCM.PN ---
- General Info Date of Service: 11/17/17 Admission Dx/Problem (Free Text): Admission Diagnosis/Problem Admission Diagnosis/Problem Pneumonia COPD CHF ARF Functional Status: Reports: Pain Controlled - Review of Systems General: Reports: Weakness HEENT: Reports: No Symptoms Pulmonary: Reports: Shortness of Breath, Cough Cardiovascular: Reports: No Symptoms Gastrointestinal: Reports: No Symptoms Genitourinary: Reports: No Symptoms Musculoskeletal: Reports: No Symptoms Skin: Reports: No Symptoms Neurological: Reports: No Symptoms Psychiatric: Reports: No Symptoms - Patient Data Vitals - Most Recent: Last Vital Signs Temp 98 F 11/17/17 16:00 Pulse 65 11/17/17 16:00 Resp 18 11/17/17 16:00 BP 177/74 H 11/17/17 16:00 Pulse Ox 96 11/17/17 16:00 Weight - Most Recent: 244 lb I&O - Last 24 Hours: Intake & Output 11/17/17 11/17/17 11/17/17 06:59 14:59 22:59 Intake Total 200 560 280 Output Total 300 600 Balance -100 -40 280 Lab Results Last 24 Hours: Laboratory Results - last 24 hr 11/17/17 11/17/17 Range/Units 06:55 06:55 WBC 8.3 (4.0-10.2) K/uL RBC 3.07 L (4.33-5.41) M/uL Hgb 10.3 L (13.1-16.8) g/dL Hct 32.2 L (39.0-49.0) % MCV 104.9 H (84.0-98.0) fL MCH 33.6 H (28.2-33.3) pg MCHC 32.0 (31.7-36.0) g/dL RDW 13.9 (11.2-14.1) % Plt Count 142 L (150-350) K/uL Neut % (Auto) 82.0 H (45.0-80.0) % Lymph % (Auto) 11.7 (10.0-50.0) % [place] % (Auto) 5.9 (2.0-14.0) % Eos % (Auto) 0.2 (0.0-5.0) % Baso % (Auto) 0.2 (0.0-2.0) % Neut # (Auto) 6.80 (1.40-7.00) K/uL Lymph # (Auto) 0.97 (0.50-3.50) K/uL [place] # (Auto) 0.49 (0.00-1.00) K/uL Eos # (Auto) 0.02 (0.00-0.50) K/uL Baso # (Auto) 0.02 (0.00-0.20) K/uL Sodium 145 (136-145) mmol/L Potassium 4.3 (3.5-5.1) mmol/L Chloride 108 H (98-107) mmol/L Carbon Dioxide 30.2 (21.0-32.0) mmol/L BUN 41 H (7-18) mg/dL Creatinine 2.10 H (0.51-1.17) mg/dL Est Cr Clr Drug Dosing 32.35 mL/min Estimated GFR (MDRD) 31 mL/min Glucose 187 H (74-106) mg/dL Calcium 10.0 (8.5-10.1) mg/dL Total Bilirubin 0.3 (0.2-1.0) mg/dL AST 14 L (15-37) U/L ALT 20 (12-78) U/L Alkaline Phosphatase 73 (46-116) IU/L C-Reactive Protein 3.1 H (<=0.9) mg/dL NT-Pro-B Natriuret Pep 2611 H (0-125) pg/mL Total Protein 6.4 (6.4-8.2) g/dL Albumin 3.0 L (3.4-5.0) g/dL Behzad Results Last 24 Hours: Microbiology 11/14/17 15:26 Aerobic Blood Culture - Preliminary Blood - Venous NO GROWTH AFTER 3 DAYS Anaerobic Blood Culture - Preliminary NO GROWTH AFTER 3 DAYS 11/14/17 15:29 Aerobic Blood Culture - Final Blood - Venous - Lab Draw Anaerobic Blood Culture - Final Med Orders - Current: Current Medications Acetaminophen (Tylenol Arthritis Pain) 650 mg PO BID@1200,1900 [facility] Last Admin: 11/17/17 11:50 Dose: 650 mg Acetaminophen (Tylenol) 650 mg PO Q6H PRN PRN Reason: Pain Albuterol/Ipratropium (Duoneb 3.0-0.5 Mg/3 Ml) 3 ml NEB Q4H PRN PRN Reason: Shortness of Breath Albuterol/Ipratropium (Duoneb 3.0-0.5 Mg/3 Ml) 3 ml NEB QIDRT [facility] Last Admin: 11/17/17 16:36 Dose: 3 ml Artificial Tears (Liquitears 1.4% Ophth Soln) 0 ml EYEBOTH Q4H PRN PRN Reason: Dry Eyes Bisacodyl (Dulcolax) 10 mg RECTAL DAILY PRN PRN Reason: Constipation Bisacodyl (Dulcolax) 5 mg PO DAILY PRN PRN Reason: Constipation Cyanocobalamin (Vitamin B12) 250 mcg PO DAILY@1200 [facility] Last Admin: 11/17/17 11:50 Dose: 250 mcg Docusate Sodium (Colace) 100 mg PO DAILY PRN PRN Reason: Constipation Finasteride (Proscar) 5 mg PO DAILY@1200 [facility] Last Admin: 11/17/17 11:50 Dose: 5 mg Furosemide (Lasix) 20 mg IVPUSH DAILY [facility] Last Admin: 11/17/17 08:39 Dose: 20 mg Guaifenesin/Dextromethorphan (Robitussin Dm) 10 ml PO Q4H PRN PRN Reason: Cough Guanfacine HCl (Guanfacine) 1 mg PO DAILY@1900 [facility] Last Admin: 11/16/17 19:39 Dose: 1 mg Metronidazole 500 mg/ Premix 100 mls @ 100 mls/hr IV Q8H [facility] Last Admin: 11/17/17 08:40 Dose: 100 mls/hr Ceftriaxone Sodium 1 gm/ (Sodium Chloride) 100 mls @ 200 mls/hr IV Q12HR [facility] Lactulose (Cephulac) 10 gm PO DAILY@1200 [facility] Last Admin: 11/17/17 11:51 Dose: Not Given Lamotrigine (Lamotrigine) 150 mg PO DAILY@1200 [facility] Last Admin: 11/17/17 11:50 Dose: 150 mg Loperamide HCl (Imodium Ad) 2 mg PO ASDIRECTED PRN PRN Reason: LOOSE STOOLS Magnesium Hydroxide (Milk Of Magnesia) 30 ml PO DAILY PRN PRN Reason: Constipation Methylprednisolone Sodium Succinate (Solu-Medrol) 20 mg IVPUSH Q12H [facility] Last Admin: 11/17/17 08:39 Dose: 20 mg Nitroglycerin (Nitrostat) 0.4 mg SL ASDIRECTED PRN PRN Reason: Chest Pain Clozapine 100 Mg (Own Med) 0 mg PO BID@1200,1900 [facility] Last Admin: 11/17/17 11:51 Dose: 150 mg Omeprazole (Omeprazole) 20 mg PO BID@1200,1900 [facility] Last Admin: 11/17/17 11:50 Dose: 20 mg Oxybutynin Chloride (Oxybutynin Er) 10 mg PO DAILY@1200 [facility] Last Admin: 11/17/17 11:50 Dose: 10 mg Primidone (Mysoline) 50 mg PO DAILY@1900 [facility] Last Admin: 11/16/17 19:38 Dose: 50 mg Propranolol HCl (Inderal La) 80 mg PO DAILY@1200 [facility] Last Admin: 11/17/17 11:51 Dose: 80 mg Senna/Docusate Sodium (Senna Plus) 2 tab PO BID@1200,1900 [facility] Last Admin: 11/17/17 11:53 Dose: Not Given Sertraline HCl (Zoloft) 200 mg PO DAILY@1200 [facility] Last Admin: 11/17/17 11:50 Dose: 200 mg Sodium Chloride (Saline Flush) 10 ml FLUSH ASDIRECTED PRN PRN Reason: Keep Vein Open Last Admin: 11/17/17 16:37 Dose: 10 ml Tamsulosin HCl (Flomax) 0.4 mg PO DAILY@190 [facility] Last Admin: 11/16/17 19:39 Dose: 0.4 mg Discontinued Medications Albuterol/Ipratropium (Duoneb 3.0-0.5 Mg/3 Ml) 3 ml NEB Q4HRRT PRN PRN Reason: Dyspnea Last Admin: 11/14/17 16:45 Dose: 3 ml Albuterol/Ipratropium (Duoneb 3.0-0.5 Mg/3 Ml) 3 ml NEB QIDRT [facility] Piperacillin Sod/Tazobactam (Sod 2.25 gm/ Sodium Chloride) 100 mls @ 200 mls/ hr IV Q6H [facility] Last Admin: 11/17/17 16:37 Dose: 200 mls/hr Piperacillin Sod/Tazobactam Sod (Zosyn) Confirm Administered Dose 2.25 gm .ROUTE .STK-MED ONE Stop: 11/14/17 16:04 Last Admin: 11/14/17 16:43 Dose: Not Given Piperacillin Sod/Tazobactam Sod (Zosyn) Confirm Administered Dose 2.25 gm .ROUTE .STK-MED ONE Stop: 11/17/17 08:17 Last Admin: 11/17/17 08:40 Dose: Not Given - Exam Quality Assessment: Supplemental Oxygen General: Alert, Cooperative, Mild Distress HEENT: Mucous Membr. Moist/[place] Neck: Trachea Midline, No JVD Lungs: Normal Respiratory Effort, Decreased Breath Sounds, Rhonchi, Wheezing Cardiovascular: Regular Rate, Regular Rhythm GI/Abdominal Exam: Soft, Non-Tender, No Distention (Male) Exam: Deferred Back Exam: Normal Inspection Extremities: Normal Inspection, Non-Tender, Pedal Edema Skin: Warm, Dry, Intact Neurological: No New Focal Deficit Psy/Mental Status: Alert, Normal Affect, Normal Mood - Problem List & Annotations (1) CHF (congestive heart failure) SNOMED Code(s): 81729700 Code(s): I50.9 - HEART FAILURE, UNSPECIFIED Status: Acute Priority: High Current Visit: Yes Qualifiers: Heart failure type: unspecified Heart failure chronicity: acute on chronic Qualified Code(s): I50.9 - Heart failure, unspecified (2) COPD (chronic obstructive pulmonary disease) SNOMED Code(s): 77092607 Code(s): J44.9 - CHRONIC OBSTRUCTIVE PULMONARY DISEASE, UNSPECIFIED Status : Acute Priority: High Current Visit: Yes Qualifiers: COPD type: COPD with acute exacerbation Qualified Code(s): J44.1 - Chronic obstructive pulmonary disease with (acute) exacerbation (3) Pneumonia SNOMED Code(s): 169489326 Code(s): J18.9 - PNEUMONIA, UNSPECIFIED ORGANISM Status: Acute Priority: High Current Visit: Yes Qualifiers: Pneumonia type: due to unspecified organism Laterality: left Lung location: lower lobe of lung Qualified Code(s): J18.1 - Lobar pneumonia, unspecified organism (4) Renal failure (ARF), acute on chronic SNOMED Code(s): 311847983 Code(s): N17.9 - ACUTE KIDNEY FAILURE, UNSPECIFIED; N18.9 - CHRONIC KIDNEY DISEASE, UNSPECIFIED Status: Acute Priority: High Current Visit: Yes Qualifiers: Acute renal failure type: unspecified Chronic kidney disease stage: stage 3 (moderate) Qualified Code(s): N17.9 - Acute kidney failure, unspecified; N18.3 - Chronic kidney disease, stage 3 (moderate); N18.3 - Chronic kidney disease, stage 3 (moderate) - Problem List Review Problem List Initiated/Reviewed/Updated: Yes - My Orders Last 24 Hours: My Active Orders 11/17/17 05:11 Chest 2V [CR] Routine 11/17/17 20:00 cefTRIAXone [Rocephin] 1 gm Sodium Chloride 0.9% [Normal Saline] 100 ml IV Q12HR - Plan Plan:: 11-14-17 Elena Goddard PA-C Admitting this gentleman from the Skilled Unit of the [facility], after evaluation at the clinic. He appears in at least mild distress, and workup finds pneumonia, COPD exacerbation and decompensation of CHF. His renal status has worsened and will need to be considered when treating these other comorbidities. [facility] had no bed available, but our career services assistant can check with her on status of beds tomorrow. Blood cultures ordered on admit. Starting IV Flagyl and Zosyn. Dr. Moran consulted at the time of admit. 11/15/17 Dean Dai MD A little bit better today. Blood cultures preliminary +. Difficult IV access. Will order PICC. Continue IV antibiotics. Kidney status no improvement. 11/16/17 Dean Dai MD Very slow progress. Bed available at [facility] today but he wants to stay in [place]. Unable to do video swallow. Needs PICC. Still awaiting blood culture results. Continue IV antibiotics. 11/17/17 Dean Dai MD Feels some better. Still weak.
[2017-11-17] MEDS: cefTRIAXone 1 GM in Sodium Chloride 0.9% 100 ML IV SCH (20:55)
[2017-11-17] MEDS: Primidone 50 MG Tab PO SCH (20:56)
[2017-11-17] MEDS: Tamsulosin 0.4 MG Cap.ER PO SCH (20:57)
[2017-11-17] MEDS: guanFACINE 1 MG Tab PO SCH (21:00)
[2017-11-18] MEDS: metroNIDAZOLE/Normal Saline 500 MG in Premix Bag 1 BAG IV SCH ×2 (01:01→08:13)
[2017-11-18] MEDS: Sodium Chloride 0.9% 10 ML Syringe FLUSH PRN ×2 (01:06→07:24)
[2017-11-18] MEDS: cefTRIAXone 1 GM in Sodium Chloride 0.9% 100 ML IV SCH (07:23)
[2017-11-18] MEDS: Albuterol/Ipratropium 3.0-0.5 MG/3 ML Neb Soln NEB SCH ×2 (07:24→12:16)
[2017-11-18] MEDS: methylPREDNISolone Sodium Succinate 40 MG/1 ML SDV IVPUSH SCH (07:24)
[2017-11-18] MEDS: Furosemide 20 MG/2 ML VIAL IVPUSH SCH (07:24)
[2017-11-18] MEDS: Finasteride 5 MG Tab PO SCH (12:16)
[2017-11-18] MEDS: Propranolol 80 MG Cap.ER PO SCH (12:16)
[2017-11-18] MEDS: Acetaminophen 650 MG Tab.ER PO SCH (12:16)
[2017-11-18] MEDS: Omeprazole 20 MG Cap.CR PO SCH (12:16)
[2017-11-18] MEDS: Cyanocobalamin (Vitamin B12) 250 MCG Tab PO SCH (12:16)
[2017-11-18] MEDS: lamoTRIgine 100 MG Tab PO SCH (12:16)
[2017-11-18] MEDS: Oxybutynin 5 MG Tab.ER PO SCH (12:17)
[2017-11-18] MEDS: CLOZAPINE 100 MG PO SCH (12:17)
[2017-11-18] MEDS: Lactulose Soln 10 GM/15 ML 30 ML UD Cup PO SCH (12:17)
[2017-11-18] MEDS: Sertraline 50 MG Tab PO SCH (12:17)
--- NOTE | 2017-11-18 13:12 | PCM.PN ---
- General Info Date of Service: 11/18/17 Admission Dx/Problem (Free Text): Admission Diagnosis/Problem Admission Diagnosis/Problem Pneumonia COPD CHF ARF Functional Status: Reports: Tolerating Diet - Review of Systems General: Reports: No Symptoms, Other (wants to go home!) HEENT: Reports: No Symptoms Pulmonary: Reports: No Symptoms Cardiovascular: Reports: No Symptoms Gastrointestinal: Reports: No Symptoms Genitourinary: Reports: No Symptoms Musculoskeletal: Reports: No Symptoms Skin: Reports: No Symptoms Neurological: Reports: No Symptoms Psychiatric: Reports: No Symptoms - Patient Data Vitals - Most Recent: Last Vital Signs Temp 98.1 F 11/18/17 12:00 Pulse 65 11/18/17 12:00 Resp 18 11/18/17 12:00 BP 148/87 H 11/18/17 12:00 Pulse Ox 95 11/18/17 12:00 Weight - Most Recent: 244 lb I&O - Last 24 Hours: Intake & Output 11/17/17 11/18/17 11/18/17 22:59 06:59 14:59 Intake Total 117 224 1629 Balance [phone] Lab Results Last 24 Hours: Laboratory Results - last 24 hr 11/18/17 11/18/17 Range/Units 07:04 07:04 WBC 7.9 (4.0-10.2) K/uL RBC 3.04 L (4.33-5.41) M/uL Hgb 10.2 L (13.1-16.8) g/dL Hct 31.8 L (39.0-49.0) % MCV 104.6 H (84.0-98.0) fL MCH 33.6 H (28.2-33.3) pg MCHC 32.1 (31.7-36.0) g/dL RDW 13.8 (11.2-14.1) % Plt Count 149 L (150-350) K/uL Neut % (Auto) 81.2 H (45.0-80.0) % Lymph % (Auto) 11.2 (10.0-50.0) % [place] % (Auto) 7.2 (2.0-14.0) % Eos % (Auto) 0.1 (0.0-5.0) % Baso % (Auto) 0.3 (0.0-2.0) % Neut # (Auto) 6.44 (1.40-7.00) K/uL Lymph # (Auto) 0.89 (0.50-3.50) K/uL [place] # (Auto) 0.57 (0.00-1.00) K/uL Eos # (Auto) 0.01 (0.00-0.50) K/uL Baso # (Auto) 0.02 (0.00-0.20) K/uL Sodium 144 (136-145) mmol/L Potassium 4.3 (3.5-5.1) mmol/L Chloride 108 H (98-107) mmol/L Carbon Dioxide 27.3 (21.0-32.0) mmol/L BUN 44 H (7-18) mg/dL Creatinine 1.92 H (0.51-1.17) mg/dL Est Cr Clr Drug Dosing 35.38 mL/min Estimated GFR (MDRD) 35 mL/min Glucose 210 H (74-106) mg/dL Calcium 9.5 (8.5-10.1) mg/dL Total Bilirubin 0.3 (0.2-1.0) mg/dL AST 14 L (15-37) U/L ALT 20 (12-78) U/L Alkaline Phosphatase 67 (46-116) IU/L C-Reactive Protein 1.3 H (<=0.9) mg/dL Total Protein 6.2 L (6.4-8.2) g/dL Albumin 3.0 L (3.4-5.0) g/dL Behzad Results Last 24 Hours: Microbiology 11/14/17 15:26 Aerobic Blood Culture - Preliminary Blood - Venous NO GROWTH AFTER 3 DAYS Anaerobic Blood Culture - Preliminary NO GROWTH AFTER 3 DAYS 11/14/17 15:29 Aerobic Blood Culture - Final Blood - Venous - Lab Draw Anaerobic Blood Culture - Final Med Orders - Current: Current Medications Acetaminophen (Tylenol Arthritis Pain) 650 mg PO BID@1200,1900 [facility] Last Admin: 11/18/17 12:16 Dose: 650 mg Acetaminophen (Tylenol) 650 mg PO Q6H PRN PRN Reason: Pain Albuterol/Ipratropium (Duoneb 3.0-0.5 Mg/3 Ml) 3 ml NEB Q4H PRN PRN Reason: Shortness of Breath Albuterol/Ipratropium (Duoneb 3.0-0.5 Mg/3 Ml) 3 ml NEB QIDRT [facility] Last Admin: 11/18/17 12:16 Dose: 3 ml Artificial Tears (Liquitears 1.4% Ophth Soln) 0 ml EYEBOTH Q4H PRN PRN Reason: Dry Eyes Bisacodyl (Dulcolax) 10 mg RECTAL DAILY PRN PRN Reason: Constipation Bisacodyl (Dulcolax) 5 mg PO DAILY PRN PRN Reason: Constipation Cyanocobalamin (Vitamin B12) 250 mcg PO DAILY@1200 [facility] Last Admin: 11/18/17 12:16 Dose: 250 mcg Docusate Sodium (Colace) 100 mg PO DAILY PRN PRN Reason: Constipation Finasteride (Proscar) 5 mg PO DAILY@1200 [facility] Last Admin: 11/18/17 12:16 Dose: 5 mg Furosemide (Lasix) 20 mg IVPUSH DAILY [facility] Last Admin: 11/18/17 07:24 Dose: 20 mg Guaifenesin/Dextromethorphan (Robitussin Dm) 10 ml PO Q4H PRN PRN Reason: Cough Guanfacine HCl (Guanfacine) 1 mg PO DAILY@1900 [facility] Last Admin: 11/17/17 21:00 Dose: 1 mg Metronidazole 500 mg/ Premix 100 mls @ 100 mls/hr IV Q8H [facility] Last Admin: 11/18/17 08:13 Dose: 100 mls/hr Ceftriaxone Sodium 1 gm/ (Sodium Chloride) 100 mls @ 200 mls/hr IV Q12HR [facility] Last Admin: 11/18/17 07:23 Dose: 200 mls/hr Lactulose (Cephulac) 10 gm PO DAILY@1200 [facility] Last Admin: 11/18/17 12:17 Dose: Not Given Lamotrigine (Lamotrigine) 150 mg PO DAILY@1200 [facility] Last Admin: 11/18/17 12:16 Dose: 150 mg Loperamide HCl (Imodium Ad) 2 mg PO ASDIRECTED PRN PRN Reason: LOOSE STOOLS Magnesium Hydroxide (Milk Of Magnesia) 30 ml PO DAILY PRN PRN Reason: Constipation Methylprednisolone Sodium Succinate (Solu-Medrol) 20 mg IVPUSH Q12H [facility] Last Admin: 11/18/17 07:24 Dose: 20 mg Nitroglycerin (Nitrostat) 0.4 mg SL ASDIRECTED PRN PRN Reason: Chest Pain Clozapine 100 Mg (Own Med) 0 mg PO BID@1200,1900 [facility] Last Admin: 11/18/17 12:17 Dose: 150 mg Omeprazole (Omeprazole) 20 mg PO BID@1200,1900 [facility] Last Admin: 11/18/17 12:16 Dose: 20 mg Oxybutynin Chloride (Oxybutynin Er) 10 mg PO DAILY@1200 [facility] Last Admin: 11/18/17 12:17 Dose: 10 mg Primidone (Mysoline) 50 mg PO DAILY@1900 [facility] Last Admin: 11/17/17 20:56 Dose: 50 mg Propranolol HCl (Inderal La) 80 mg PO DAILY@1200 [facility] Last Admin: 11/18/17 12:16 Dose: 80 mg Senna/Docusate Sodium (Senna Plus) 2 tab PO BID@1200,1900 [facility] Last Admin: 11/18/17 12:17 Dose: Not Given Sertraline HCl (Zoloft) 200 mg PO DAILY@1200 [facility] Last Admin: 11/18/17 12:17 Dose: 200 mg Sodium Chloride (Saline Flush) 10 ml FLUSH ASDIRECTED PRN PRN Reason: Keep Vein Open Last Admin: 11/18/17 07:24 Dose: 10 ml Tamsulosin HCl (Flomax) 0.4 mg PO DAILY@1900 [facility] Last Admin: 11/17/17 20:57 Dose: 0.4 mg Discontinued Medications Albuterol/Ipratropium (Duoneb 3.0-0.5 Mg/3 Ml) 3 ml NEB Q4HRRT PRN PRN Reason: Dyspnea Last Admin: 11/14/17 16:45 Dose: 3 ml Albuterol/Ipratropium (Duoneb 3.0-0.5 Mg/3 Ml) 3 ml NEB QIDRT [facility] Piperacillin Sod/Tazobactam (Sod 2.25 gm/ Sodium Chloride) 100 mls @ 200 mls/ hr IV Q6H [facility] Last Admin: 11/17/17 16:37 Dose: 200 mls/hr Piperacillin Sod/Tazobactam Sod (Zosyn) Confirm Administered Dose 2.25 gm .ROUTE .STK-MED ONE Stop: 11/14/17 16:04 Last Admin: 11/14/17 16:43 Dose: Not Given Piperacillin Sod/Tazobactam Sod (Zosyn) Confirm Administered Dose 2.25 gm .ROUTE .STK-MED ONE Stop: 11/17/17 08:17 Last Admin: 11/17/17 08:40 Dose: Not Given - Exam Quality Assessment: Supplemental Oxygen General: Alert, Oriented HEENT: EOMI, Mucous Membr. Moist/[place] Neck: Supple, Trachea Midline Lungs: Normal Respiratory Effort, Decreased Breath Sounds Cardiovascular: Regular Rate, Regular Rhythm GI/Abdominal Exam: Normal Bowel Sounds, Soft, Non-Tender (Male) Exam: Deferred Back Exam: Normal Inspection Extremities: Normal Inspection (for this patient) Skin: Warm, Dry, Intact Neurological: No New Focal Deficit Psy/Mental Status: Alert, Normal Affect, Normal Mood - Problem List & Annotations (1) Pneumonia SNOMED Code(s): 752162938 Code(s): J18.9 - PNEUMONIA, UNSPECIFIED ORGANISM Status: Acute Priority: High Current Visit: Yes Qualifiers: Pneumonia type: due to unspecified organism Laterality: left Lung location: lower lobe of lung Qualified Code(s): J18.1 - Lobar pneumonia, unspecified organism (2) COPD (chronic obstructive pulmonary disease) SNOMED Code(s): 93538206 Code(s): J44.9 - CHRONIC OBSTRUCTIVE PULMONARY DISEASE, UNSPECIFIED Status : Acute Priority: High Current Visit: Yes Qualifiers: COPD type: COPD with acute exacerbation Qualified Code(s): J44.1 - Chronic obstructive pulmonary disease with (acute) exacerbation (3) CHF (congestive heart failure) SNOMED Code(s): 87231590 Code(s): I50.9 - HEART FAILURE, UNSPECIFIED Status: Acute Priority: High Current Visit: Yes Qualifiers: Heart failure type: unspecified Heart failure chronicity: acute on chronic Qualified Code(s): I50.9 - Heart failure, unspecified (4) Renal failure (ARF), acute on chronic SNOMED Code(s): 498852468 Code(s): N17.9 - ACUTE KIDNEY FAILURE, UNSPECIFIED; N18.9 - CHRONIC KIDNEY DISEASE, UNSPECIFIED Status: Acute Priority: High Current Visit: Yes Qualifiers: Acute renal failure type: unspecified Chronic kidney disease stage: stage 3 (moderate) Qualified Code(s): N17.9 - Acute kidney failure, unspecified; N18.3 - Chronic kidney disease, stage 3 (moderate); N18.3 - Chronic kidney disease, stage 3 (moderate) - Problem List Review Problem List Initiated/Reviewed/Updated: Yes - Plan Plan:: 11-14-17 Elena Goddard PA-C Admitting this gentleman from the Skilled Unit of the [facility], after evaluation at the clinic. He appears in at least mild distress, and workup finds pneumonia, COPD exacerbation and decompensation of CHF. His renal status has worsened and will need to be considered when treating these other comorbidities. [facility] had no bed available, but our daycare worker can check with her on status of beds tomorrow. Blood cultures ordered on admit. Starting IV Flagyl and Zosyn. Dr. Moran consulted at the time of admit. 11/15/17 Dean Dai MD A little bit better today. Blood cultures preliminary +. Difficult IV access. Will order PICC. Continue IV antibiotics. Kidney status no improvement. 11/16/17 Dean Dai MD Very slow progress. Bed available at [facility] today but he wants to stay in [place]. Unable to do video swallow. Needs PICC. Still awaiting blood culture results. Continue IV antibiotics. 11/17/17 Dean Dai MD Feels some better. Still weak. 11-18-17 Elena Goddard PA-C Patient is wanting to go home! Denies chest pain, SOB or cough - says still weaker than on admit. Talked to Mei Helm CCP at [facility] Skilled and they are ready with the Ceftriaxone for the PICC line and po Flagyl. Will transfer back today, and follow up on rounds at the [facility].
--- NOTE | 2017-11-18 13:37 | PCM.DCSUM1 ---
Discharge Summary - Hospital Course Brief History: Initially admitted with pneumonia, COPD exacerbation, CHF and hypoxia after evaluation in the clinic. No bed availability at the [facility]. - Discharge Data Discharge Date: 11/18/17 Discharge Disposition: DC/Tfer to SNF 03 Condition: Fair - Discharge Diagnosis/Problem(s) (1) Pneumonia SNOMED Code(s): 752984004 ICD Code: J18.9 - PNEUMONIA, UNSPECIFIED ORGANISM Status: Acute Priority : High Current Visit: Yes Qualifiers: Pneumonia type: due to unspecified organism Laterality: left Lung location: lower lobe of lung Qualified Code(s): J18.1 - Lobar pneumonia, unspecified organism (2) COPD (chronic obstructive pulmonary disease) SNOMED Code(s): 33068893 ICD Code: J44.9 - CHRONIC OBSTRUCTIVE PULMONARY DISEASE, UNSPECIFIED Status : Acute Priority: High Current Visit: Yes Qualifiers: COPD type: COPD with acute exacerbation Qualified Code(s): J44.1 - Chronic obstructive pulmonary disease with (acute) exacerbation (3) CHF (congestive heart failure) SNOMED Code(s): 19320191 ICD Code: I50.9 - HEART FAILURE, UNSPECIFIED Status: Acute Priority: High Current Visit: Yes Qualifiers: Heart failure type: unspecified Heart failure chronicity: acute on chronic Qualified Code(s): I50.9 - Heart failure, unspecified (4) Renal failure (ARF), acute on chronic SNOMED Code(s): 558285089 ICD Code: N17.9 - ACUTE KIDNEY FAILURE, UNSPECIFIED; N18.9 - CHRONIC KIDNEY DISEASE, UNSPECIFIED Status: Acute Priority: High Current Visit: Yes Qualifiers: Acute renal failure type: unspecified Chronic kidney disease stage: stage 3 (moderate) Qualified Code(s): N17.9 - Acute kidney failure, unspecified; N18.3 - Chronic kidney disease, stage 3 (moderate); N18.3 - Chronic kidney disease, stage 3 (moderate) - Patient Summary/Data Consults: Consultations 11/14/17 15:11 Pharmacy Consult [Consult to Pharmacy] [CONS] Routine 11/14/17 15:12 Care Management Consult [Consult to Case Management] [CONS] Routine 11/16/17 05:11 Consult to PICC Team [CONS] Routine 11/16/17 08:00 Consult to Speech Language Pathology [[employer] Evaluation and Treatment] [CONS] Routine Hospital Course: IV Ceftriaxone and Flagyl were ordered, and patient was started on IV Solu- Medrol and Lasix. PICC line was placed. Patient has markedly improved today, and he is ready to return to Skilled care at the [facility]. - Patient Instructions Diet: Regular Diet as Tolerated Diet, Other: May have a NA beer QD prn. Activity: As Tolerated Driving: Do Not Drive Showering/Bathing: May Shower Other/Special Instructions: Admit back to [facility] Skilled Unit. VS QD while on antibiotics, then back to unit routine. CBC, CRP, BNP and CMP 11-27-17. Follow up on rounds 11-28-17. - Discharge Plan Prescriptions/Med Rec: cefTRIAXone [Rocephin] 1 gm IV Q12HR #14 vial Sodium Chloride 0.9% [Normal Saline] 100 ml IV Q12HR #14 bag metroNIDAZOLE [Flagyl] 500 mg PO Q8H #20 tab Sodium Chloride 0.9% [Saline Flush] 10 ml FLUSH ASDIRECTED PRN #30 syringe PRN Reason: Keep Vein Open Home Medications: Home Meds Acetaminophen [Acetaminophen 8 Hour] 650 mg PO BID@1200,1900 11/14/17 [History] Acetaminophen [Mapap] 650 mg PO Q6H PRN 11/14/17 [History] Albuterol/Ipratropium [DuoNeb 3.0-0.5 MG/3 ML] 3 ml NEB Q4H PRN 11/14/17 [ History] Albuterol/Ipratropium [DuoNeb 3.0-0.5 MG/3 ML] 3 ml NEB QID 11/14/17 [History] Bisacodyl 10 mg RECTAL DAILY PRN 11/14/17 [History] Bisacodyl [Dulcolax] 5 mg PO DAILY PRN 11/14/17 [History] Cholecalciferol (Vitamin D3) [Vitamin D3] 2,000 units PO DAILY@1900 11/14/17 [ History] [place] Tar [Thera-Gel] 1 applic TOP ASDIRECTED PRN 11/14/17 [History] Cyanocobalamin (Vitamin B-12) [Vitamin B-12] 250 mcg PO DAILY@1200 11/14/17 [ History] Dextran 70/Hypromellose [Artificial Tears] 2 ml EYEBOTH Q4H PRN 11/14/17 [ History] Docusate Sodium [Colace] 100 mg PO DAILY PRN 11/14/17 [History] Finasteride [Proscar] 5 mg PO DAILY@119911/14/17 [History] Fish Oil/[place]-3 Fatty Acids [Fish Oil 1,000 MG] 1 gm PO DAILY@119911/14/17 [ History] Lactulose [Chronulac] 10 gm PO DAILY@119911/14/17 [History] Loperamide [Imodium AD] 2 mg PO ASDIRECTED PRN 11/14/17 [History] Magnesium Hydroxide [Milk of Magnesia] 30 ml PO DAILY PRN 11/14/17 [History] Menthol [Bengay] 1 applic TOP BID PRN 11/14/17 [History] Miconazole 25 gm MC TID PRN 11/14/17 [History] Multivit with Calcium,Iron,Min [Essential Daily] 1 tab PO DAILY@119911/14/17 [ History] Nitroglycerin 0.4 mg SL ASDIRECTED PRN 11/14/17 [History] Omeprazole 20 mg PO BID@1199,189911/14/17 [History] Oxybutynin [Oxybutynin ER] 1 tab PO DAILY@119911/14/17 [History] Primidone 50 mg PO DAILY@189911/14/17 [History] Propranolol HCl [Inderal Xl] 80 mg PO DAILY@119911/14/17 [History] Sennosides/Docusate Sodium [Senna S Tablet] 2 tab PO BID@1199,189911/14/17 [ History] Sertraline [Zoloft] 200 mg PO DAILY@119911/14/17 [History] Tamsulosin [Flomax] 0.4 mg PO DAILY@189911/14/17 [History] cloZAPine [Clozaril] 150 mg PO BID@1199,189911/14/17 [History] guaiFENesin/Dextromethorphan [Tussin Dm Liquid] 10 ml PO Q4H PRN 11/14/17 [ History] guanFACINE 1 mg PO DAILY@189911/14/17 [History] lamoTRIgine [LaMICtal] 150 mg PO DAILY@119911/14/17 [History] Furosemide 20 mg PO DAILY@1200 #30 03/24/18 [Rx] Sodium Chloride 0.9% [Normal Saline] 100 ml IV Q12HR #14 bag 11/18/17 [Rx] Sodium Chloride 0.9% [Saline Flush] 10 ml FLUSH ASDIRECTED PRN #30 syringe 11/18 [Rx] cefTRIAXone [Rocephin] 1 gm IV Q12HR #14 vial 11/18/17 [Rx] metroNIDAZOLE [Flagyl] 500 mg PO Q8H #20 tab 11/18/17 [Rx] - Discharge Summary/Plan Comment DC Time >30 min.: Yes Discharge Summary/Plan Comment: Patient is being transferred back to the Skilled Unit of the [facility], on Ceftriaxone per PICC line and po Flagyl. Will follow up rounds 11-28-17, and get labs 11-27-17. - Patient Data Vitals - Most Recent: Last Vital Signs Temp 98.1 F 11/18/17 12:00 Pulse 65 11/18/17 12:00 Resp 18 11/18/17 12:00 BP 148/87 H 11/18/17 12:00 Pulse Ox 95 11/18/17 12:00 Weight - Most Recent: 244 lb I&O - Last 24 hours: Intake & Output 11/17/17 11/18/17 11/18/17 22:59 06:59 14:59 Intake Total 740 070 9252 Balance 096 290 2941 Lab Results - Last 24 hrs: Laboratory Results - last 24 hr 11/18/17 11/18/17 Range/Units 07:04 07:04 WBC 7.9 (4.0-10.2) K/uL RBC 3.04 L (4.33-5.41) M/uL Hgb 10.2 L (13.1-16.8) g/dL Hct 31.8 L (39.0-49.0) % MCV 104.6 H (84.0-98.0) fL MCH 33.6 H (28.2-33.3) pg MCHC 32.1 (31.7-36.0) g/dL RDW 13.8 (11.2-14.1) % Plt Count 149 L (150-350) K/uL Neut % (Auto) 81.2 H (45.0-80.0) % Lymph % (Auto) 11.2 (10.0-50.0) % [place] % (Auto) 7.2 (2.0-14.0) % Eos % (Auto) 0.1 (0.0-5.0) % Baso % (Auto) 0.3 (0.0-2.0) % Neut # (Auto) 6.44 (1.40-7.00) K/uL Lymph # (Auto) 0.89 (0.50-3.50) K/uL [place] # (Auto) 0.57 (0.00-1.00) K/uL Eos # (Auto) 0.01 (0.00-0.50) K/uL Baso # (Auto) 0.02 (0.00-0.20) K/uL Sodium 144 (136-145) mmol/L Potassium 4.3 (3.5-5.1) mmol/L Chloride 108 H (98-107) mmol/L Carbon Dioxide 27.3 (21.0-32.0) mmol/L BUN 44 H (7-18) mg/dL Creatinine 1.92 H (0.51-1.17) mg/dL Est Cr Clr Drug Dosing 35.38 mL/min Estimated GFR (MDRD) 35 mL/min Glucose 210 H (74-106) mg/dL Calcium 9.5 (8.5-10.1) mg/dL Total Bilirubin 0.3 (0.2-1.0) mg/dL AST 14 L (15-37) U/L ALT 20 (12-78) U/L Alkaline Phosphatase 67 (46-116) IU/L C-Reactive Protein 1.3 H (<=0.9) mg/dL Total Protein 6.2 L (6.4-8.2) g/dL Albumin 3.0 L (3.4-5.0) g/dL ESHTER Results - Last 24 hrs: Microbiology 11/14/17 15:26 Aerobic Blood Culture - Preliminary Blood - Venous NO GROWTH AFTER 3 DAYS Anaerobic Blood Culture - Preliminary NO GROWTH AFTER 3 DAYS 11/14/17 15:29 Aerobic Blood Culture - Final Blood - Venous - Lab Draw Anaerobic Blood Culture - Final Med Orders - Current: Current Medications Acetaminophen (Tylenol Arthritis Pain) 650 mg PO BID@1200,1900 [facility] Last Admin: 11/18/17 12:16 Dose: 650 mg Acetaminophen (Tylenol) 650 mg PO Q6H PRN PRN Reason: Pain Albuterol/Ipratropium (Duoneb 3.0-0.5 Mg/3 Ml) 3 ml NEB Q4H PRN PRN Reason: Shortness of Breath Albuterol/Ipratropium (Duoneb 3.0-0.5 Mg/3 Ml) 3 ml NEB QIDRT [facility] Last Admin: 11/18/17 12:16 Dose: 3 ml Artificial Tears (Liquitears 1.4% Ophth Soln) 0 ml EYEBOTH Q4H PRN PRN Reason: Dry Eyes Bisacodyl (Dulcolax) 10 mg RECTAL DAILY PRN PRN Reason: Constipation Bisacodyl (Dulcolax) 5 mg PO DAILY PRN PRN Reason: Constipation Cyanocobalamin (Vitamin B12) 250 mcg PO DAILY@1200 [facility] Last Admin: 11/18/17 12:16 Dose: 250 mcg Docusate Sodium (Colace) 100 mg PO DAILY PRN PRN Reason: Constipation Finasteride (Proscar) 5 mg PO DAILY@1200 [facility] Last Admin: 11/18/17 12:16 Dose: 5 mg Furosemide (Lasix) 20 mg IVPUSH DAILY [facility] Last Admin: 11/18/17 07:24 Dose: 20 mg Guaifenesin/Dextromethorphan (Robitussin Dm) 10 ml PO Q4H PRN PRN Reason: Cough Guanfacine HCl (Guanfacine) 1 mg PO DAILY@1900 [facility] Last Admin: 11/17/17 21:00 Dose: 1 mg Metronidazole 500 mg/ Premix 100 mls @ 100 mls/hr IV Q8H [facility] Last Admin: 11/18/17 08:13 Dose: 100 mls/hr Ceftriaxone Sodium 1 gm/ (Sodium Chloride) 100 mls @ 200 mls/hr IV Q12HR [facility] Last Admin: 11/18/17 07:23 Dose: 200 mls/hr Lactulose (Cephulac) 10 gm PO DAILY@1200 [facility] Last Admin: 11/18/17 12:17 Dose: Not Given Lamotrigine (Lamotrigine) 150 mg PO DAILY@1200 [facility] Last Admin: 11/18/17 12:16 Dose: 150 mg Loperamide HCl (Imodium Ad) 2 mg PO ASDIRECTED PRN PRN Reason: LOOSE STOOLS Magnesium Hydroxide (Milk Of Magnesia) 30 ml PO DAILY PRN PRN Reason: Constipation Methylprednisolone Sodium Succinate (Solu-Medrol) 20 mg IVPUSH Q12H [facility] Last Admin: 11/18/17 07:24 Dose: 20 mg Nitroglycerin (Nitrostat) 0.4 mg SL ASDIRECTED PRN PRN Reason: Chest Pain Clozapine 100 Mg (Own Med) 0 mg PO BID@1200,1900 [facility] Last Admin: 11/18/17 12:17 Dose: 150 mg Omeprazole (Omeprazole) 20 mg PO BID@1200,1900 [facility] Last Admin: 11/18/17 12:16 Dose: 20 mg Oxybutynin Chloride (Oxybutynin Er) 10 mg PO DAILY@1200 [facility] Last Admin: 11/18/17 12:17 Dose: 10 mg Primidone (Mysoline) 50 mg PO DAILY@190 [facility] Last Admin: 11/17/17 20:56 Dose: 50 mg Propranolol HCl (Inderal La) 80 mg PO DAILY@1200 [facility] Last Admin: 11/18/17 12:16 Dose: 80 mg Senna/Docusate Sodium (Senna Plus) 2 tab PO BID@1200,1900 [facility] Last Admin: 11/18/17 12:17 Dose: Not Given Sertraline HCl (Zoloft) 200 mg PO DAILY@1200 [facility] Last Admin: 11/18/17 12:17 Dose: 200 mg Sodium Chloride (Saline Flush) 10 ml FLUSH ASDIRECTED PRN PRN Reason: Keep Vein Open Last Admin: 11/18/17 07:24 Dose: 10 ml Tamsulosin HCl (Flomax) 0.4 mg PO DAILY@190 [facility] Last Admin: 11/17/17 20:57 Dose: 0.4 mg Discontinued Medications Albuterol/Ipratropium (Duoneb 3.0-0.5 Mg/3 Ml) 3 ml NEB Q4HRRT PRN PRN Reason: Dyspnea Last Admin: 11/14/17 16:45 Dose: 3 ml Albuterol/Ipratropium (Duoneb 3.0-0.5 Mg/3 Ml) 3 ml NEB QIDRT [facility] Piperacillin Sod/Tazobactam (Sod 2.25 gm/ Sodium Chloride) 100 mls @ 200 mls/ hr IV Q6H [facility] Last Admin: 11/17/17 16:37 Dose: 200 mls/hr Piperacillin Sod/Tazobactam Sod (Zosyn) Confirm Administered Dose 2.25 gm .ROUTE .STK-MED ONE Stop: 11/14/17 16:04 Last Admin: 11/14/17 16:43 Dose: Not Given Piperacillin Sod/Tazobactam Sod (Zosyn) Confirm Administered Dose 2.25 gm .ROUTE .STK-MED ONE Stop: 11/17/17 08:17 Last Admin: 11/17/17 08:40 Dose: Not Given *Q Meaningful Use (DIS) - VTE *Q VTE Criteria *Q: - Stroke *Q Stroke Criteria *Q: - AMI *Q AMI Criteria *Q:
== END 2017-11-18 13:50 | DRG 190 ==
LOC: LL.DI 13:44 → LL.MS 14:54
PROVIDERS: ADMIT Physician Assistant; ATTEND Family Medicine
PROC: 05HY33Z Insertion of Infusion Device into Upper Vein, Percutaneous Approach (ICD-10-PCS; principal; 2017-11-16)
DX: J44.9 Chronic obstructive pulmonary disease, unspecified (principal); J44.0 Chronic obstructive pulmonary disease with (acute) lower respiratory infection; R06.02 Shortness of breath; J18.9 Pneumonia, unspecified organism; I13.0 Hypertensive heart and chronic kidney disease with heart failure and stage 1 through stage 4 chronic kidney disease, or unspecified chronic kidney disease; N17.9 Acute kidney failure, unspecified; J44.1 Chronic obstructive pulmonary disease with (acute) exacerbation; I50.9 Heart failure, unspecified; G47.30 Sleep apnea, unspecified; K21.9 Gastro-esophageal reflux disease without esophagitis; N18.3 Chronic kidney disease, stage 3 (moderate); N40.0 Benign prostatic hyperplasia without lower urinary tract symptoms; N32.81 Overactive bladder; M19.90 Unspecified osteoarthritis, unspecified site; G20 Parkinson's disease; F32.9 Major depressive disorder, single episode, unspecified; E66.9 Obesity, unspecified; Z88.8 Allergy status to other drugs, medicaments and biological substances
CPT/HCPCS: 36415; 36569; 71046; 80053; 82803; 83880; 84100; 84550; 85025; 86140; 87040; 87077; 94640; A9270-GY; J0696; J1940; J2543; J2920; J7050

== ENCOUNTER 2017-11-30 20:22 | Emergency (ER) | payer MEDICARE, OTHER ==
--- NOTE | 2017-11-30 22:44 | EDM.PDOC ---
ED HPI GENERAL MEDICAL PROBLEM - General Chief Complaint: General Stated Complaint: lethargic Time Seen by Provider: 11/30/17 20:56 Source of Information: Reports: Other [facility] History Limitations: Reports: Other (Hard to understand patient's answers) - History of Present Illness INITIAL COMMENTS - FREE TEXT/NARRATIVE: Patient sent here from [place] [facility] after staff felt that he was more lethargic than usual. No fevers/chills or other acute changes were reported. There was a question of possible SOB as they apparently turned his oxygen up by 1 LPM on his CPAP tonight. Patient has no complaint when asked except for cough. He does have a chronic cough and is a chronic aspirator per staff familiar with him. He was recently admitted for pneumonia and treated with several antibiotics which he finished yesterday. During ROS he denied other changes. He did agree that he felt a bit tired but this is normally his bed time. No other information is given. Treatments [employer]: Reports: IV/IO, Oxygen - Related Data Allergies Allergy/AdvReac Type Severity Reaction Status Date / Time acyclovir Allergy Cannot Verified 11/30/17 20:44 Remember Home Meds: Home Meds Acetaminophen [Acetaminophen 8 Hour] 650 mg PO BID@1200,1900 11/14/17 [History] Acetaminophen [Mapap] 650 mg PO Q6H PRN 11/14/17 [History] Albuterol/Ipratropium [DuoNeb 3.0-0.5 MG/3 ML] 3 ml NEB Q4H PRN 11/14/17 [ History] Albuterol/Ipratropium [DuoNeb 3.0-0.5 MG/3 ML] 3 ml NEB QID 11/14/17 [History] Bisacodyl 10 mg RECTAL DAILY PRN 11/14/17 [History] Bisacodyl [Dulcolax] 5 mg PO DAILY PRN 11/14/17 [History] Cholecalciferol (Vitamin D3) [Vitamin D3] 2,000 units PO DAILY@1900 11/14/17 [ History] [place] Tar [Thera-Gel] 1 applic TOP ASDIRECTED PRN 11/14/17 [History] Cyanocobalamin (Vitamin B-12) [Vitamin B-12] 250 mcg PO DAILY@1200 11/14/17 [ History] Dextran 70/Hypromellose [Artificial Tears] 2 ml EYEBOTH Q4H PRN 11/14/17 [ History] Docusate Sodium [Colace] 100 mg PO DAILY PRN 11/14/17 [History] Finasteride [Proscar] 5 mg PO DAILY@119911/14/17 [History] Fish Oil/[place]-3 Fatty Acids [Fish Oil 1,000 MG] 1 gm PO DAILY@119911/14/17 [ History] Lactulose [Chronulac] 10 gm PO DAILY@119911/14/17 [History] Loperamide [Imodium AD] 2 mg PO ASDIRECTED PRN 11/14/17 [History] Magnesium Hydroxide [Milk of Magnesia] 30 ml PO DAILY PRN 11/14/17 [History] Menthol [Bengay] 1 applic TOP BID PRN 11/14/17 [History] Miconazole 25 gm MC TID PRN 11/14/17 [History] Multivit with Calcium,Iron,Min [Essential Daily] 1 tab PO DAILY@119911/14/17 [ History] Nitroglycerin 0.4 mg SL ASDIRECTED PRN 11/14/17 [History] Omeprazole 20 mg PO BID@1200,189911/14/17 [History] Primidone 50 mg PO DAILY@189911/14/17 [History] Propranolol HCl [Inderal Xl] 80 mg PO DAILY@119911/14/17 [History] Sennosides/Docusate Sodium [Senna S Tablet] 2 tab PO BID@1200,189911/14/17 [ History] Sertraline [Zoloft] 200 mg PO DAILY@119911/14/17 [History] Tamsulosin [Flomax] 0.4 mg PO DAILY@189911/14/17 [History] cloZAPine [Clozaril] 150 mg PO BID@1200,189911/14/17 [History] guaiFENesin/Dextromethorphan [Tussin Dm Liquid] 10 ml PO Q4H PRN 11/14/17 [ History] guanFACINE 1 mg PO DAILY@189911/14/17 [History] lamoTRIgine [LaMICtal] 150 mg PO DAILY@119911/14/17 [History] Furosemide 20 mg PO DAILY@1200 #30 11/18/17 [Rx] Past Medical History HEENT History: Reports: Cataract Other HEENT History: Dysphagia Cardiovascular History: Reports: Heart Failure, Hypertension Respiratory History: Reports: COPD, Sleep Apnea Gastrointestinal History: Reports: Chronic Constipation, GERD Genitourinary History: Reports: BPH, Renal Disease Other Genitourinary History: Overactive Bladder Musculoskeletal History: Reports: Osteoarthritis Neurological History: Reports: Parkinson's Psychiatric History: Reports: Bipolar, Depression, Psychosis, Schizophrenia Endocrine/Metabolic History: Reports: Obesity/BMI 30+ Hematologic History: Reports: Anemia Social & Family History - Tobacco Use Smoking Status *Q: Former Smoker Used Tobacco, but Quit: Yes Month/Year Tobacco Last Used: 2004 Second Hand Smoke Exposure: No - Caffeine Use Caffeine Use: Reports: Coffee, Soda, Tea - Recreational Drug Use Recreational Drug Use: No - Living Situation & Occupation Living situation: Reports: [facility] ED ROS GENERAL - Review of Systems Review Of Systems: See Below Constitutional: Reports: No Symptoms HEENT: Reports: No Symptoms Respiratory: Reports: Cough. Denies: Shortness of Breath, Wheezing, Pleuritic Chest Pain, Hemoptysis Cardiovascular: Reports: No Symptoms. Denies: Chest Pain GI/Abdominal: Reports: No Symptoms. Denies: Abdominal Pain, Nausea, Vomiting : Reports: No Symptoms Musculoskeletal: Reports: No Symptoms (no acute changes in baseline) Skin: Reports: Bruising (has scattered older bruises) Neurological: Reports: No Symptoms (No acute changes) Psychiatric: Reports: No Symptoms ED EXAM, GENERAL - Physical Exam Exam: See Below Exam Limited By: Physical Impairment (Patient is obese, difficulty moving around in bed to aid in exam) General Appearance: Obese, Other (sleeping in bed, easily arousable. ) Eye Exam: Bilateral Eye: EOMI, PERRL Ears: Normal External Exam Nose: No: Nasal Deformity, Nasal Swelling, Nasal Drainage Throat/Mouth: Normal Lips, Normal Voice, No Airway Compromise Head: Atraumatic, Normocephalic Neck: Normal Inspection, Supple, Non-Tender, Full Range of Motion Respiratory/Chest: No Respiratory Distress, No Accessory Muscle Use, Chest Non- Tender, Decreased Breath Sounds (throughout), Crackles (as bases only). No: Rales, Rhonchi, Wheezing, Stridor, Pleural Rub, Accessory Muscle Use, Retractions Cardiovascular: Regular Rate, Rhythm, No Murmur Peripheral Pulses: 2+: Radial (L), Radial (R) GI/Abdominal: Normal Bowel Sounds, Soft, Non-Tender, No Distention (Male) Exam: Deferred Rectal (Males) Exam: Deferred Back Exam: Normal Inspection. No: CVA Tenderness (L), CVA Tenderness (R) Extremities: Non-Tender, Normal Capillary Refill, Pedal Edema (bilateral lower legs, wears foam booties to help avoid pressure sores around heels/ankles). No : Leg Pain, Increased Warmth Neurological: Alert, Other (equal tone upper/lower extremities) Psychiatric: Normal Affect, Normal Mood Skin Exam: Warm, Dry, Normal Color Course - Vital Signs Last Recorded V/S: Last Vital Signs Temp 36.2 C 11/30/17 20:39 Pulse 65 11/30/17 23:49 Resp 16 11/30/17 23:49 BP 154/78 H 11/30/17 23:49 Pulse Ox 92 L 11/30/17 23:49 - Orders/Labs/Meds Orders: Active Orders 24 hr Category Date Time Status CXR [Chest 1V Frontal] [CR] Stat Exams 11/30/17 20:26 Taken Labs: Laboratory Tests 11/30/17 11/30/17 11/30/17 Range/Units 21:50 21:50 21:50 WBC 7.2 (4.0-10.2) K/uL RBC 2.98 L (4.33-5.41) M/uL Hgb 10.0 L (13.1-16.8) g/dL Hct 31.5 L (39.0-49.0) % MCV 105.7 H (84.0-98.0) fL MCH 33.6 H (28.2-33.3) pg MCHC 31.7 (31.7-36.0) g/dL RDW 14.4 H (11.2-14.1) % Plt Count 113 L (150-350) K/uL Neut % (Auto) 76.0 (45.0-80.0) % Lymph % (Auto) 15.4 (10.0-50.0) % [place] % (Auto) 6.2 (2.0-14.0) % Eos % (Auto) 2.0 (0.0-5.0) % Baso % (Auto) 0.4 (0.0-2.0) % Neut # (Auto) 5.44 (1.40-7.00) K/uL Lymph # (Auto) 1.10 (0.50-3.50) K/uL [place] # (Auto) 0.44 (0.00-1.00) K/uL Eos # (Auto) 0.14 (0.00-0.50) K/uL Baso # (Auto) 0.03 (0.00-0.20) K/uL Sodium 144 (136-145) mmol/L Potassium 4.8 (3.5-5.1) mmol/L Chloride 110 H (98-107) mmol/L Carbon Dioxide 29.4 (21.0-32.0) mmol/L BUN 27 H (7-18) mg/dL Creatinine 2.21 H (0.51-1.17) mg/dL Est Cr Clr Drug Dosing 30.28 mL/min Estimated GFR (MDRD) 29 mL/min Glucose 171 H (74-106) mg/dL Calcium 9.3 (8.5-10.1) mg/dL Total Bilirubin 0.4 (0.2-1.0) mg/dL AST 13 L (15-37) U/L ALT 19 (12-78) U/L Alkaline Phosphatase 78 (46-116) IU/L NT-Pro-B Natriuret Pep 485 H (0-125) pg/mL Total Protein 6.1 L (6.4-8.2) g/dL Albumin 2.8 L (3.4-5.0) g/dL Meds: Medications Discontinued Medications Generic Name Dose Route Start Last Admin Trade Name Ryanq PRN Reason Stop Dose Admin Ceftriaxone Sodium 1 gm 11/30/17 22:57 11/30/17 23:05 Rocephin IM 11/30/17 22:58 1 gm ONETIME ONE Administration Lidocaine HCl Confirm 11/30/17 23:02 Xylocaine-Mpf 1% Administered 11/30/17 23:03 Dose 5 ml .ROUTE .STK-MED ONE - Radiology Interpretation Free Text/Narrative:: Chest xray showed mild patchiness at bases. Significant improvement of previous pneumonia on left when compared to previous xray. - Re-Assessments/Exams Free Text/Narrative Re-Assessment/Exam: 11/30/17 22:52 Patient slept comfortably in ER. On O2 via [place]. Sats in mid 90s. Normal WBC. Plt 113, Glu 171, Bun 27, Cr 2.2, Hgb 10 Staff quite familiar with patient given his recent inpatient stay. They note that he appears to be at his baseline for interaction and activity and does not appear lethargic. Again, chest xray shows significant improvement. Only a small amount of patchy change is noted at bases. May represent continued resolving pneumonia. Patient does have chronic problems with repeat aspiration and cannot rule out new changes. No fevers however. Plan at this time is to give single dose IM Rocephin. Patient was on Rocephin to treat the recent pneumonia and last dose was given IV yesterday. Staff at [facility] are to watch for changes and follow up with [facility] [place] to see if they wish to continue antibiotics or wish to continue to observe for now. Departure - Departure Time of Disposition: 23:30 Disposition: DC/Tfer to SNF 03 Reason for Transfer *Q: Other (lives at [facility]) Condition: Good Clinical Impression: Pneumonia Qualifiers: Pneumonia type: due to unspecified organism Laterality: left Lung location: lower lobe of lung Qualified Code(s): J18.1 - Lobar pneumonia, unspecified organism Referrals: Sheets-Libra Dai MD [Primary Care Provider] - Forms: ED Department Discharge Additional Instructions: Observe for further changes, such as worsening cough/fevers. Call [facility] in the morning and discuss having patient follow up at clinic or on rounds at [facility], and if they wish to continue antibiotics vs continued observation. - My Orders Last 24 Hours: My Active Orders 11/30/17 20:26 CXR [Chest 1V Frontal] [CR] Stat - Assessment/Plan Last 24 Hours: My Active Orders 11/30/17 20:26 CXR [Chest 1V Frontal] [CR] Stat
[2017-11-30] MEDS ORDERED: cefTRIAXone 1 GM Vial IM ONE (22:57)
== END 2017-12-01 ==
LOC: LL.ED 20:22
DX: J18.9 Pneumonia, unspecified organism (principal); I11.0 Hypertensive heart disease with heart failure; I50.9 Heart failure, unspecified; Z88.8 Allergy status to other drugs, medicaments and biological substances; Z79.899 Other long term (current) drug therapy; Z87.891 Personal history of nicotine dependence
CPT/HCPCS: 36000; 36415; 71045; 80053; 83880; 85025; 96372; 99285; J0696

== ENCOUNTER 2018-03-03 19:13 | Emergency (ER) | payer MEDICARE, OTHER ==
[2018-03-03 20:02] LABS: CHLORIDE,CL 110 mmol/L (98-107); SODIUM,NA 145 mmol/L (136-145)
--- NOTE | 2018-03-03 21:42 | EDM.PDOC ---
ED HPI GENERAL MEDICAL PROBLEM - General Chief Complaint: General Stated Complaint: productive cough, neck pain, weak Time Seen by Provider: 03/03/18 19:20 Source of Information: Reports: Patient, Senior Care Records, RN History Limitations: Reports: Altered Mental Status - History of Present Illness INITIAL COMMENTS - FREE TEXT/NARRATIVE: Pt is a 72-year-old who is brought in for evaluation with chills and cough no temperature and generalized weakness. Onset: Gradual Duration: Day(s): Location: Reports: Chest, Generalized Quality: Reports: Ache Severity: Moderate Improves with: Reports: None Worsens with: Reports: Breathing, Other, Movement Context: Reports: Other Associated Symptoms: Reports: Cough, Weakness - Related Data Allergies Allergy/AdvReac Type Severity Reaction Status Date / Time acyclovir Allergy Cannot Verified 03/03/18 19:17 Remember Home Meds: Home Meds Acetaminophen [Acetaminophen 8 Hour] 650 mg PO BID@1200,1900 11/14/17 [History] Acetaminophen [Mapap] 650 mg PO Q6H PRN 11/14/17 [History] Albuterol/Ipratropium [DuoNeb 3.0-0.5 MG/3 ML] 3 ml NEB Q4H PRN 11/14/17 [ History] Albuterol/Ipratropium [DuoNeb 3.0-0.5 MG/3 ML] 3 ml NEB QID 11/14/17 [History] Bisacodyl 10 mg RECTAL DAILY PRN 11/14/17 [History] Bisacodyl [Dulcolax] 5 mg PO DAILY PRN 11/14/17 [History] Cholecalciferol (Vitamin D3) [Vitamin D3] 2,000 units PO DAILY@19011/14/17 [ History] [place] Tar [Thera-Gel] 1 applic TOP ASDIRECTED PRN 11/14/17 [History] Cyanocobalamin (Vitamin B-12) [Vitamin B-12] 250 mcg PO DAILY@1200 11/14/17 [ History] Dextran 70/Hypromellose [Artificial Tears] 2 ml EYEBOTH Q4H PRN 11/14/17 [ History] Docusate Sodium [Colace] 100 mg PO DAILY PRN 11/14/17 [History] Finasteride [Proscar] 5 mg PO DAILY@1200 11/14/17 [History] Fish Oil/[place]-3 Fatty Acids [Fish Oil 1,000 MG] 1 gm PO DAILY@119911/14/17 [ History] Lactulose [Chronulac] 10 gm PO DAILY@119911/14/17 [History] Loperamide [Imodium AD] 2 mg PO ASDIRECTED PRN 11/14/17 [History] Magnesium Hydroxide [Milk of Magnesia] 30 ml PO DAILY PRN 11/14/17 [History] Menthol [Bengay] 1 applic TOP BID PRN 11/14/17 [History] Miconazole 25 gm MC TID PRN 11/14/17 [History] Multivit with Calcium,Iron,Min [Essential Daily] 1 tab PO DAILY@119911/14/17 [ History] Nitroglycerin 0.4 mg SL ASDIRECTED PRN 11/14/17 [History] Omeprazole 20 mg PO BID@1200,189911/14/17 [History] Primidone 50 mg PO DAILY@189911/14/17 [History] Propranolol HCl [Inderal Xl] 80 mg PO DAILY@119911/14/17 [History] Sennosides/Docusate Sodium [Senna-S Tablet] 2 tab PO BID@1200,189911/14/17 [ History] Sertraline [Zoloft] 200 mg PO DAILY@119911/14/17 [History] Tamsulosin [Flomax] 0.4 mg PO DAILY@189911/14/17 [History] cloZAPine [Clozaril] 300 mg PO BEDTIME 11/14/17 [History] guaiFENesin/Dextromethorphan [Tussin Dm Liquid] 10 ml PO Q4H PRN 11/14/17 [ History] guanFACINE 1 mg PO DAILY@189911/14/17 [History] lamoTRIgine [LaMICtal] 150 mg PO DAILY@119911/14/17 [History] Furosemide 20 mg PO DAILY@1200 #30 11/18/17 [Rx] Past Medical History HEENT History: Reports: Cataract Other HEENT History: Dysphagia Cardiovascular History: Reports: Heart Failure, Hypertension Respiratory History: Reports: COPD, Sleep Apnea Gastrointestinal History: Reports: Chronic Constipation, GERD Genitourinary History: Reports: BPH, Renal Disease Other Genitourinary History: Overactive Bladder Musculoskeletal History: Reports: Osteoarthritis Neurological History: Reports: Parkinson's Psychiatric History: Reports: Bipolar, Depression, Psychosis, Schizophrenia Endocrine/Metabolic History: Reports: Obesity/BMI 30+ Hematologic History: Reports: Anemia Social & Family History - Caffeine Use Caffeine Use: Reports: Coffee, Soda, Tea - Living Situation & Occupation Living situation: Reports: [facility] ED ROS GENERAL - Review of Systems Review Of Systems: See Below Constitutional: Reports: Weakness, Fatigue HEENT: Reports: Vertigo (Lightheadedness) Respiratory: Reports: Shortness of Breath, Cough Cardiovascular: Reports: Lightheadedness Endocrine: Reports: No Symptoms GI/Abdominal: Reports: No Symptoms : Reports: Incontinence Musculoskeletal: Reports: Joint Pain, Muscle Pain, Muscle Stiffness Skin: Reports: No Symptoms Neurological: Reports: Confusion Psychiatric: Reports: Anxiety, Confusion, Other (Delusional) Hematologic/Lymphatic: Reports: No Symptoms Immunologic: Reports: No Symptoms ED EXAM, GENERAL - Physical Exam Exam: See Below Exam Limited By: Altered Mental Status General Appearance: WD/WN, Mild Distress Ears: Normal External Exam, Normal Canal, Hearing Grossly Normal, Normal TMs Ear Exam: Bilateral Ear: Auricle Normal, Canal Normal, TM normal Nose: Normal Inspection, Normal Mucosa, No Blood Throat/Mouth: Normal Inspection, Normal Lips Head: Atraumatic, Normocephalic Neck: Normal Inspection, Supple, Non-Tender, Full Range of Motion Respiratory/Chest: Respiratory Distress, Decreased Breath Sounds, Rhonchi Cardiovascular: Normal Peripheral Pulses, Regular Rate, Rhythm, No Edema, No Gallop, No JVD, No Murmur, No Rub GI/Abdominal: Normal Bowel Sounds, Soft, Non-Tender, No Organomegaly, No Distention, No Abnormal Bruit, No Mass (Male) Exam: No Hernia, Normal Inspection, Normal Prostate, Circumcised Rectal (Males) Exam: Normal Exam, Deferred Back Exam: Normal Inspection, Full Range of Motion, NT Extremities: Normal Inspection, Normal Range of Motion, Non-Tender, Normal Capillary Refill, No Pedal Edema Neurological: Alert Psychiatric: Depressed Mood Skin Exam: Warm, Dry, Intact, Normal Color, No Rash Lymphatic: No Adenopathy Course - Orders/Labs/Meds Orders: Active Orders 24 hr Category Date Time Status Chest 1V Frontal [CR] Stat Exams 03/03/18 20:33 Taken UA W/MICROSCOPIC [URIN] Stat Lab 03/03/18 21:45 Ordered Labs: Laboratory Tests 03/03/18 03/03/18 03/03/18 Range/Units 19:40 19:40 19:40 WBC 5.3 (4.0-10.2) K/uL RBC 3.47 L (4.33-5.41) M/uL Hgb 11.0 L (13.1-16.8) g/dL Hct 35.4 L (39.0-49.0) % MCV 102.0 H (84.0-98.0) fL MCH 31.7 (28.2-33.3) pg MCHC 31.1 L (31.7-36.0) g/dL RDW 14.7 H (11.2-14.1) % Plt Count 141 L (150-350) K/uL Neut % (Auto) 67.2 (45.0-80.0) % Lymph % (Auto) 25.0 (10.0-50.0) % [place] % (Auto) 5.3 (2.0-14.0) % Eos % (Auto) 2.3 (0.0-5.0) % Baso % (Auto) 0.2 (0.0-2.0) % Neut # (Auto) 3.55 (1.40-7.00) K/uL Lymph # (Auto) 1.32 (0.50-3.50) K/uL [place] # (Auto) 0.28 (0.00-1.00) K/uL Eos # (Auto) 0.12 (0.00-0.50) K/uL Baso # (Auto) 0.01 (0.00-0.20) K/uL Sodium 145 (136-145) mmol/L Potassium 4.3 (3.5-5.1) mmol/L Chloride 110 H (98-107) mmol/L Carbon Dioxide 28.4 (21.0-32.0) mmol/L BUN 49 H (7-18) mg/dL Creatinine 2.42 H (0.51-1.17) mg/dL Est Cr Clr Drug Dosing TNP Estimated GFR (MDRD) 26 mL/min Glucose 243 H (74-106) mg/dL Calcium 9.8 (8.5-10.1) mg/dL NT-Pro-B Natriuret Pep 557 H (0-125) pg/mL Specimen Type Urine Color Urine Appearance Urine pH (5.0-9.0) Ur Specific [place] (1.005-1.030) Urine Protein (NEGATIVE) mg/dL Urine Glucose (UA) (NEGATIVE) mg/dL Urine Ketones (NEGATIVE) mg/dL Urine Occult Blood (NEGATIVE) Urine Nitrite (NEGATIVE) Urine Bilirubin (NEGATIVE) Urine Urobilinogen (0.2-1.0) E.U./dL Ur Leukocyte Esterase (NEGATIVE) Urine RBC /HPF Urine WBC /HPF Ur Epithelial Cells /LPF Amorphous Sediment (0/HPF) /HPF Urine Bacteria (NONE TO FEW) /HPF 03/03/18 Range/Units 21:45 WBC (4.0-10.2) K/uL RBC (4.33-5.41) M/uL Hgb (13.1-16.8) g/dL Hct (39.0-49.0) % MCV (84.0-98.0) fL MCH (28.2-33.3) pg MCHC (31.7-36.0) g/dL RDW (11.2-14.1) % Plt Count (150-350) K/uL Neut % (Auto) (45.0-80.0) % Lymph % (Auto) (10.0-50.0) % [place] % (Auto) (2.0-14.0) % Eos % (Auto) (0.0-5.0) % Baso % (Auto) (0.0-2.0) % Neut # (Auto) (1.40-7.00) K/uL Lymph # (Auto) (0.50-3.50) K/uL [place] # (Auto) (0.00-1.00) K/uL Eos # (Auto) (0.00-0.50) K/uL Baso # (Auto) (0.00-0.20) K/uL Sodium (136-145) mmol/L Potassium (3.5-5.1) mmol/L Chloride (98-107) mmol/L Carbon Dioxide (21.0-32.0) mmol/L BUN (7-18) mg/dL Creatinine (0.51-1.17) mg/dL Est Cr Clr Drug Dosing Estimated GFR (MDRD) mL/min Glucose (74-106) mg/dL Calcium (8.5-10.1) mg/dL NT-Pro-B Natriuret Pep (0-125) pg/mL Specimen Type Urinvoid Urine Color Yellow Urine Appearance Slightly cloudy Urine pH 5.5 (5.0-9.0) Ur Specific [place] 1.010 (1.005-1.030) Urine Protein Negative (NEGATIVE) mg/dL Urine Glucose (UA) Negative (NEGATIVE) mg/dL Urine Ketones Negative (NEGATIVE) mg/dL Urine Occult Blood Negative (NEGATIVE) Urine Nitrite Negative (NEGATIVE) Urine Bilirubin Negative (NEGATIVE) Urine Urobilinogen 0.2 (0.2-1.0) E.U./dL Ur Leukocyte Esterase Negative (NEGATIVE) Urine RBC 0-5 /HPF Urine WBC 0-5 /HPF Ur Epithelial Cells Rare /LPF Amorphous Sediment Few (0/HPF) /HPF Urine Bacteria Rare (NONE TO FEW) /HPF Departure - Departure Time of Disposition: 23:22 Disposition: DC/Tfer to [facility] 02 Condition: Fair Clinical Impression: Aspiration pneumonia - Discharge Information Referrals: Libra Ventura MD [Primary Care Provider] - Forms: ED Department Discharge - Problem List & Annotations (1) Aspiration pneumonia SNOMED Code(s): 902003049 Code(s): J69.0 - PNEUMONITIS DUE TO INHALATION OF FOOD AND VOMIT Status: Acute Annotation/Comment:: Spoke to the OR would like patient sent to [facility] for evaluation and treatment of pneumonia if patient seen by speech pathologist OR would like to take him back. At this time we will do blood cultures and urine cultures prior to transfer as per Dr. Jacques - Problem List Review Problem List Initiated/Reviewed/Updated: Yes - My Orders Last 24 Hours: My Active Orders 03/03/18 20:33 Chest 1V Frontal [CR] Stat 03/03/18 21:45 UA W/MICROSCOPIC [URIN] Stat - Assessment/Plan Last 24 Hours: My Active Orders 03/03/18 20:33 Chest 1V Frontal [CR] Stat 03/03/18 21:45 UA W/MICROSCOPIC [URIN] Stat
[2018-03-04] MEDS: Piperacillin/Tazobactam 3.375 GM in Sodium Chloride 0.9% 100 ML IV SCH (00:49)
[2018-03-04] MEDS: Sodium Chloride 0.9% 1,000 ML IV SCH (00:50)
[2018-03-04] MEDS ORDERED: Sodium Chloride 0.9% 10 ML Syringe FLUSH PRN (01:25)
== END 2018-03-04 00:45 ==
LOC: LL.ED 19:13
DX: J69.0 Pneumonitis due to inhalation of food and vomit (principal); I11.0 Hypertensive heart disease with heart failure; I50.9 Heart failure, unspecified; K21.9 Gastro-esophageal reflux disease without esophagitis; J44.9 Chronic obstructive pulmonary disease, unspecified; Z88.1 Allergy status to other antibiotic agents; Z79.899 Other long term (current) drug therapy
CPT/HCPCS: 36415; 51702; 71045; 80048; 81001; 83880; 85025; 87040; 87086; 96365; 99283; 99285; J2543; J7030; J7050

== ENCOUNTER 2018-04-10 04:40 | Emergency (ER) | payer MEDICARE, OTHER ==
--- NOTE | 2018-04-10 05:15 | EDM.PDOC ---
ED HPI GENERAL MEDICAL PROBLEM - General Stated Complaint: shortness of breath Time Seen by Provider: 04/10/18 04:50 Source of Information: Reports: RN - History of Present Illness INITIAL COMMENTS - FREE TEXT/NARRATIVE: Patient is a 72-year-old gentleman who was [facility] from the [facility] with chief complaint of shortness of breath hypoxemia history of COPD apparently he had been coughing and nurse noted that he was confused with O2 sats in the low 80s at this time they placed oxygen on and he was unable to get his oxygen passed 85 so he was referred to us for evaluation and treatment Onset: Sudden Duration: Hour(s): Location: Reports: Chest Severity: Moderate Improves with: Reports: Rest, Other (Oxygen) Context: Reports: Other (Illness) Associated Symptoms: Reports: Cough - Related Data Allergies Allergy/AdvReac Type Severity Reaction Status Date / Time acyclovir Allergy Cannot Verified 03/03/18 19:17 Remember Home Meds: Home Meds Acetaminophen [Acetaminophen 8 Hour] 650 mg PO BID@1200,1900 11/14/17 [History] Acetaminophen [Mapap] 650 mg PO Q6H PRN 11/14/17 [History] Albuterol/Ipratropium [DuoNeb 3.0-0.5 MG/3 ML] 3 ml NEB Q4H PRN 11/14/17 [ History] Albuterol/Ipratropium [DuoNeb 3.0-0.5 MG/3 ML] 3 ml NEB QID 11/14/17 [History] Bisacodyl 10 mg RECTAL DAILY PRN 11/14/17 [History] Bisacodyl [Dulcolax] 5 mg PO DAILY PRN 11/14/17 [History] Cholecalciferol (Vitamin D3) [Vitamin D3] 2,000 units PO DAILY@1900 11/14/17 [ History] [place] Tar [Thera-Gel] 1 applic TOP ASDIRECTED PRN 11/14/17 [History] Cyanocobalamin (Vitamin B-12) [Vitamin B-12] 250 mcg PO DAILY@1200 11/14/17 [ History] Dextran 70/Hypromellose [Artificial Tears] 2 ml EYEBOTH Q4H PRN 11/14/17 [ History] Docusate Sodium [Colace] 100 mg PO DAILY PRN 11/14/17 [History] Finasteride [Proscar] 5 mg PO DAILY@119911/14/17 [History] Fish Oil/[place]-3 Fatty Acids [Fish Oil 1,000 MG] 1 gm PO DAILY@119911/14/17 [ History] Lactulose [Chronulac] 10 gm PO DAILY@119911/14/17 [History] Loperamide [Imodium AD] 2 mg PO ASDIRECTED PRN 11/14/17 [History] Magnesium Hydroxide [Milk of Magnesia] 30 ml PO DAILY PRN 11/14/17 [History] Menthol [Bengay] 1 applic TOP BID PRN 11/14/17 [History] Miconazole 25 gm MC TID PRN 11/14/17 [History] Multivit with Calcium,Iron,Min [Essential Daily] 1 tab PO DAILY@119911/14/17 [ History] Nitroglycerin 0.4 mg SL ASDIRECTED PRN 11/14/17 [History] Omeprazole 20 mg PO BID@1200,189911/14/17 [History] Primidone 50 mg PO DAILY@189911/14/17 [History] Propranolol HCl [Inderal Xl] 80 mg PO DAILY@119911/14/17 [History] Sennosides/Docusate Sodium [Senna-S Tablet] 2 tab PO BID@1200,189911/14/17 [ History] Sertraline [Zoloft] 200 mg PO DAILY@119911/14/17 [History] Tamsulosin [Flomax] 0.4 mg PO DAILY@189911/14/17 [History] cloZAPine [Clozaril] 300 mg PO BEDTIME 11/14/17 [History] guaiFENesin/Dextromethorphan [Tussin Dm Liquid] 10 ml PO Q4H PRN 11/14/17 [ History] guanFACINE 1 mg PO DAILY@189911/14/17 [History] lamoTRIgine [LaMICtal] 150 mg PO DAILY@119911/14/17 [History] Furosemide 20 mg PO DAILY@1200 #30 11/18/17 [Rx] Past Medical History HEENT History: Reports: Cataract Other HEENT History: Dysphagia Cardiovascular History: Reports: Heart Failure, Hypertension Respiratory History: Reports: COPD, Sleep Apnea Gastrointestinal History: Reports: Chronic Constipation, GERD Genitourinary History: Reports: BPH, Renal Disease Other Genitourinary History: Overactive Bladder Musculoskeletal History: Reports: Osteoarthritis Neurological History: Reports: Parkinson's Psychiatric History: Reports: Bipolar, Depression, Psychosis, Schizophrenia Endocrine/Metabolic History: Reports: Obesity/BMI 30+ Hematologic History: Reports: Anemia Social & Family History - Caffeine Use Caffeine Use: Reports: Coffee, Soda, Tea - Living Situation & Occupation Living situation: Reports: Extended Care Facility ([facility]) ED ROS GENERAL - Review of Systems Review Of Systems: See Below Constitutional: Reports: Weakness HEENT: Reports: No Symptoms Respiratory: Reports: Shortness of Breath, Cough Cardiovascular: Reports: No Symptoms Endocrine: Reports: No Symptoms GI/Abdominal: Reports: No Symptoms : Reports: No Symptoms Musculoskeletal: Reports: No Symptoms, Other (Buttocks pain) Skin: Reports: No Symptoms Neurological: Reports: No Symptoms ( ) ED EXAM, GENERAL - Physical Exam Exam: See Below Exam Limited By: Altered Mental Status General Appearance: Alert, No Apparent Distress Eye Exam: Bilateral Eye: EOMI, PERRL Ears: Normal External Exam Ear Exam: Bilateral Ear: Auricle Normal, Canal Normal, TM normal Nose: Normal Inspection, Normal Mucosa, No Blood Throat/Mouth: Normal Oropharynx (Mucosa was dry mouth. Breathing) Neck: Normal Inspection, Supple Respiratory/Chest: Decreased Breath Sounds, Rales, Prolonged Expiration Cardiovascular: Normal Peripheral Pulses, Regular Rate, Rhythm, No Edema, No Gallop, No JVD, No Murmur, No Rub GI/Abdominal: Normal Bowel Sounds, Soft, Non-Tender, No Organomegaly, No Distention, No Abnormal Bruit, No Mass (Male) Exam: Deferred Rectal (Males) Exam: Deferred Back Exam: Decreased Range of Motion, Other (Decubitus ulcer healing) Extremities: Pedal Edema, Limited Range of Motion Neurological: Alert, CN II-XII Intact, Disoriented Psychiatric: Flat Affect Skin Exam: Warm, Dry, Intact, Normal Color, No Rash Course - Orders/Labs/Meds Labs: Laboratory Tests 04/10/18 04/10/18 04/10/18 Range/Units 05:17 05:17 05:18 WBC 7.4 (4.0-10.2) K/uL RBC 3.34 L (4.33-5.41) M/uL Hgb 10.5 L (13.1-16.8) g/dL Hct 33.7 L (39.0-49.0) % MCV 100.9 H (84.0-98.0) fL MCH 31.4 (28.2-33.3) pg MCHC 31.2 L (31.7-36.0) g/dL RDW 14.2 H (11.2-14.1) % Plt Count 136 L (150-350) K/uL Neut % (Auto) 79.7 (45.0-80.0) % Lymph % (Auto) 13.3 (10.0-50.0) % [place] % (Auto) 5.3 (2.0-14.0) % Eos % (Auto) 1.6 (0.0-5.0) % Baso % (Auto) 0.1 (0.0-2.0) % Neut # (Auto) 5.91 (1.40-7.00) K/uL Lymph # (Auto) 0.99 (0.50-3.50) K/uL [place] # (Auto) 0.39 (0.00-1.00) K/uL Eos # (Auto) 0.12 (0.00-0.50) K/uL Baso # (Auto) 0.01 (0.00-0.20) K/uL ABG pH 7.35 (7.35-7.45) ABG pCO2 45 (35-45) mmHG ABG pO2 56 L* (80-105) mmHG ABG HCO3 25.0 (22-26) mmol/L ABG Total CO2 26 (23-27) mmol/L ABG O2 Saturation 87 L (95-98) % ABG Base Excess -1 (-2-3) mmol/L O2 Delivery Device Nasal cannula Sodium 146 H (136-145) mmol/L Potassium 3.7 (3.5-5.1) mmol/L Chloride 114 H (98-107) mmol/L Carbon Dioxide 28.4 (21.0-32.0) mmol/L BUN 48 H (7-18) mg/dL Creatinine 2.63 H (0.51-1.17) mg/dL Est Cr Clr Drug Dosing TNP Estimated GFR (MDRD) 24 mL/min Glucose 143 H (74-106) mg/dL Lactic Acid (0.4-2.0) mmol/L Calcium 9.4 (8.5-10.1) mg/dL Total Bilirubin 0.3 (0.2-1.0) mg/dL AST 14 L (15-37) U/L ALT 17 (12-78) U/L Alkaline Phosphatase 99 (46-116) IU/L C-Reactive Protein (<=0.9) mg/dL NT-Pro-B Natriuret Pep (0-125) pg/mL Total Protein 5.8 L (6.4-8.2) g/dL Albumin 2.1 L (3.4-5.0) g/dL 04/10/18 04/10/18 Range/Units 06:01 06:01 WBC (4.0-10.2) K/uL RBC (4.33-5.41) M/uL Hgb (13.1-16.8) g/dL Hct (39.0-49.0) % MCV (84.0-98.0) fL MCH (28.2-33.3) pg MCHC (31.7-36.0) g/dL RDW (11.2-14.1) % Plt Count (150-350) K/uL Neut % (Auto) (45.0-80.0) % Lymph % (Auto) (10.0-50.0) % [place] % (Auto) (2.0-14.0) % Eos % (Auto) (0.0-5.0) % Baso % (Auto) (0.0-2.0) % Neut # (Auto) (1.40-7.00) K/uL Lymph # (Auto) (0.50-3.50) K/uL [place] # (Auto) (0.00-1.00) K/uL Eos # (Auto) (0.00-0.50) K/uL Baso # (Auto) (0.00-0.20) K/uL ABG pH (7.35-7.45) ABG pCO2 (35-45) mmHG ABG pO2 (80-105) mmHG ABG HCO3 (22-26) mmol/L ABG Total CO2 (23-27) mmol/L ABG O2 Saturation (95-98) % ABG Base Excess (-2-3) mmol/L O2 Delivery Device Sodium (136-145) mmol/L Potassium (3.5-5.1) mmol/L Chloride (98-107) mmol/L Carbon Dioxide (21.0-32.0) mmol/L BUN (7-18) mg/dL Creatinine (0.51-1.17) mg/dL Est Cr Clr Drug Dosing Estimated GFR (MDRD) mL/min Glucose (74-106) mg/dL Lactic Acid 1.7 (0.4-2.0) mmol/L Calcium (8.5-10.1) mg/dL Total Bilirubin (0.2-1.0) mg/dL AST (15-37) U/L ALT (12-78) U/L Alkaline Phosphatase (46-116) IU/L C-Reactive Protein 18.6 H (<=0.9) mg/dL NT-Pro-B Natriuret Pep 1495 H (0-125) pg/mL Total Protein (6.4-8.2) g/dL Albumin (3.4-5.0) g/dL Meds: Medications Discontinued Medications Generic Name Dose Route Start Last Admin Trade Name Freq PRN Reason Stop Dose Admin Sodium Chloride 1,000 mls @ 150 mls/hr 04/10/18 06:00 Normal Saline IV ASDIRECTED NASIR Sodium Chloride 10 ml 04/10/18 05:51 Saline Flush FLUSH ASDIRECTED PRN Keep Vein Open Departure - Departure Time of Disposition: 06:34 Disposition: DC/Tfer to SNF 03 Condition: Fair Clinical Impression: Mild congestive heart failure, Mucus plugging of bronchi CHF (congestive heart failure) Qualifiers: Heart failure type: unspecified Heart failure chronicity: acute on chronic Qualified Code(s): I50.9 - Heart failure, unspecified - Discharge Information *PRESCRIPTION DRUG MONITORING PROGRAM REVIEWED*: No *COPY OF PRESCRIPTION DRUG MONITORING REPORT IN PATIENT OREN: No Forms: ED Department Discharge Care Plan Goals: Patient seen in the hospital was coughing severely his O2 was 85% on a rebreather mask after he coughed large amount of mucus came out and his oxygen saturation went up to 95% on 4 L this has been stable and has not changed chest x-ray revealed large hiatal hernia no acute infiltrates no pulmonary edema Encourage patient to cough and take deep breaths continue oxygen at 4 L nasal cannula will increase his Lasix to 20 mg twice a day repeat CMP and CBC 2017. Start DuoNeb every 4 hours gibran. Start Augmentin 875 twice a day for 10 days. Blood cultures and sputum cultures pending patient will be sent home
[2018-04-10 05:46] LABS: O2 DELIVERY DEVICE NASAL CANNULA
[2018-04-10 05:47] LABS: O2 SATURATION ARTERIAL 87 % (95-98); PCO2 ARTERIAL 45 mmHG (35-45); PO2 ARTERIAL 56 mmHG (80-105)
[2018-04-10 05:48] LABS: CHLORIDE,CL 114 mmol/L (98-107); SODIUM,NA 146 mmol/L (136-145)
[2018-04-10 05:48] LABS: BASE EXCESS ARTERIAL -1 mmol/L (-2-3)
[2018-04-10] MEDS ORDERED: Sodium Chloride 0.9% 10 ML Syringe FLUSH PRN (05:51)
[2018-04-10] MEDS ORDERED: Sodium Chloride 0.9% 1,000 ML IV SCH (06:00)
== END 2018-04-10 07:16 ==
LOC: LL.ED 04:40
DX: T17.590A Other foreign object in bronchus causing asphyxiation, initial encounter (principal); I11.0 Hypertensive heart disease with heart failure; I50.9 Heart failure, unspecified; J44.9 Chronic obstructive pulmonary disease, unspecified; F31.9 Bipolar disorder, unspecified; G20 Parkinson's disease; Z88.1 Allergy status to other antibiotic agents; Z79.899 Other long term (current) drug therapy; Z99.81 Dependence on supplemental oxygen; X58.XXXA Exposure to other specified factors, initial encounter
CPT/HCPCS: 36000; 36415; 71045; 80053; 82803; 83605; 83880; 85025; 86140; 87040; 87070; 87077; 87186; 87205; 99285